=== PATIENT | female | born 1950 | race Caucasian/White ===

== ENCOUNTER 2016-11-01 12:44 | Day surgery (SDC) | payer OTHER ==
[~2016-11-01] VITALS: Ht 167.6 cm; Wt 86.6 kg
[~2016-11-01 12:44] MED LIST: ABILIFY10 MG PO; ADULT LOW DOSE81 M1 PO; ADVAIR 250/501 DISK IH; AKWA TEARS15 ML BOTH EYES; ALBUTEROL SULF8.5 GM IH; ALPRAZOLAM0.5 MG PO; ALTOPREV40 MG PO; AMBIEN CR12.5 MG PO; AMBIEN10 MG PO; AMITIZA24 MICROGR PO; ANTIVERT25 MG PO; ASPIR 8181 M1 PO; ASPIR-TRIN325 M1 PO; ATORVASTATIN CA40 MG PO; AVENTYL,PAMELOR50 MG PO; Ambien PO; B12 5,000 MCG1 EACH PO; BUPROPION XL150 MG PO; BUPROPION XL300 MG PO; BUTALB-ACETAMI1 EACH PO; BUTALB-APAP-CA1 EACH PO; BUTALB-CAFF-AC1 EACH; BUTALBITAL-APA1 EACH PO; CARAFATE1 GM PO; CELEBREX200 MG PO; CIMETIDINE400 MG PO; CINNAMON500 MG PO; CIPRO500 MG PO; CLEOCIN300 MG PO; CLINDAMYCIN HC300 MG PO; CYCLOBENZAPRINE10 MG PO; D-VERT25 MG PO; DICYCLOMINE HCL20 MG PO; DILAUDID4 MG PO; DOMPERIDONE1 GM MC; DOXYCYCLINE HY100 MG PO; DURAGESIC12 MCG TD; DURAGESIC12 MICROGR TD; DURAGESIC25 MCG TD; ENDOCET 5-3251 EACH PO; ENDOCET 7.5-321 EACH PO; ERGOCALCIF50000 UNIT PO; ESGIC 50-325-41 EAC1 PO; FENTANYL1 EAC5 TD; FIORICET 50-301 EACH PO; FLEXERIL10 MG PO; FLONASE16 G1 BOTH NARES; FLUTICASONE PRO16 GM BOTH NARES; GEMFIBROZIL600 MG PO; GLIPIZIDE5 M1 PO; GLIPIZIDE5 MG PO; GLUCOPHAGE1000 MG PO; HUMALOG100 UNIT/1 SC; HUMALOG100 UNIT/2 SC; HYDROXYZINE HCL25 M1 PO; JANUVIA25 M1 PO; KEFLEX500 MG PO; LANTUS 10100 UNITS/ SC; LANTUS 3 M100 UNITS1 SC; LEVAQUIN750 MG PO; LEVOTHROID,SY0.05 MG PO; LEVOTHYROXINE50 MCG PO; LEXAPRO20 MG PO; LIDOCAINE700 MG TD; LIDODERM 5% P1 PATCH TD; LINZESS290 MCG PO; LIPITOR40 MG PO; LISINOPRIL5 MG PO; LOPID600 MG PO; LOPRESSOR25 MG PO; LORAZEPAM0.5 MG PO; LOVASTATIN20 MG PO; LYRICA100 MG PO; LYRICA150 MG PO; LYRICA75 MG PO; MAXALT5 MG PO; MECLIZINE HCL25 MG PO; MELOXICAM7.5 MG PO; METFORMIN HCL1000 MG PO; METHOCARBAMOL750 MG PO; METOPROLOL TART25 MG PO; METOPROLOL TART50 MG PO; MORPHINE SULFAT15 M1 PO; MS CONTIN,ORAMO15 M1 PO; Motilium PO; NITROFURANTOIN100 MG PO; NITROSTAT0.4 MG SL; OMEPRAZOLE40 M1 PO; ONDANSETRON HCL4 MG PO; OXYCODONE HCL5 MG PO; OXYCODONE-APAP1 EAC6 PO; OXYCODONE-APAP1 EACH PO; PAMELOR50 MG PO; PERCOCET 5/31 TABLET PO; PERCOCET 7.51 TABLET PO; PHENADOZ25 MG PO; PRENATAL TABLE1 EAC3 PO; PREVACID15 MG PO; PREVACID30 MG PO; PRILOSEC20 MG PO; PRILOSEC40 MG PO; PRINIVIL5 MG PO; PROAIR RESPICL90 MCG IH; PROMETHAZINE HC25 M1 PO; PROMETHAZINE HC50 M1 PO; Percocet 5/325,Endoc PO; Phenergan PO; RANITIDINE HCL150 M1 PO; REFRESH TEARS15 ML BOTH EYES; REPAN 50-325-41 EAC1 PO; REQUIP0.25 MG PO; RESTORIL15 MG PO; RIZATRIPTAN5 MG PO; ROPINIROLE HC0.25 MG PO; SENOKOT,SENN1 TABLET PO; SERTRALINE HCL50 MG PO; SUMATRIPTAN SUC50 MG PO; SYNTHROID50 MCG PO; TESSALON PERLE100 MG PO; TIZANIDINE HCL2 MG PO; TIZANIDINE HCL4 MG PO; TOPAMAX25 MG PO; TOPAMAX50 MG PO; TOPIRAMATE50 MG PO; TRAZODONE HCL50 MG PO; Theragran PO; VENTOLIN HFA18 GM IH; VICODIN 5-3001 EACH PO; VITAMIN D-32000 UNI1 PO; VITAMIN D22000 UNIT PO; VITAMIN D31000 UNI2 PO; VOLTAREN 1% GE100 GM TP; WELLBUTRIN XL300 MG PO; XANAX0.5 MG PO; ZANAFLEX2 MG PO; ZANAFLEX4 MG PO; ZOFRAN ODT4 MG PO; ZOFRAN4 MG PO; ZOLOFT100 MG PO; ZOLOFT50 MG PO; ZOLPIDEM TART12.5 MG PO; ZOLPIDEM TARTRA10 MG PO; ZYRTEC10 M3 PO
[2016-11-01 13:21] LABS: POINT-OF-CARE METER ID UU14174212
== END 2016-11-01 14:37 | disposition home or self-care (01) ==
LOC: PAIN 12:44 → SDC 13:45 → PAIN 14:37
PROVIDERS: Anesthesiology Pain Medicine
PROC: 015B3ZZ Destruction of Lumbar Nerve, Percutaneous Approach (ICD-10-PCS; principal; 2016-11-01)
DX: M47.816 Spondylosis without myelopathy or radiculopathy, lumbar region (principal); F41.9 Anxiety disorder, unspecified; M12.88 Other specific arthropathies, not elsewhere classified, other specified site; M48.06 Spinal stenosis, lumbar region; M51.26 Other intervertebral disc displacement, lumbar region; M79.1 Myalgia; H91.90 Unspecified hearing loss, unspecified ear; E11.9 Type 2 diabetes mellitus without complications; E66.9 Obesity, unspecified; I10 Essential (primary) hypertension; J45.909 Unspecified asthma, uncomplicated; F32.9 Major depressive disorder, single episode, unspecified; Z87.891 Personal history of nicotine dependence; Z79.4 Long term (current) use of insulin; Z88.0 Allergy status to penicillin; Z88.5 Allergy status to narcotic agent; Z88.1 Allergy status to other antibiotic agents; Z88.8 Allergy status to other drugs, medicaments and biological substances
CPT/HCPCS: 82948; J1030; J2250; J3010; S0020

== ENCOUNTER 2016-12-15 13:32 | Day surgery (SDC) | payer OTHER ==
[~2016-12-15] VITALS: Ht 167.6 cm; Wt 86.6 kg
[2016-12-15 15:07] LABS: POINT-OF-CARE METER ID UU14174212
== END 2016-12-15 15:41 | disposition home or self-care (01) ==
LOC: PAIN 13:32 → SDC 14:15 → PAIN 14:15
PROVIDERS: Anesthesiology Pain Medicine
PROC: 3E0U33Z Introduction of Anti-inflammatory into Joints, Percutaneous Approach (ICD-10-PCS; principal; 2016-12-15)
DX: M16.11 Unilateral primary osteoarthritis, right hip (principal); F41.1 Generalized anxiety disorder; M48.06 Spinal stenosis, lumbar region; E11.9 Type 2 diabetes mellitus without complications; K21.9 Gastro-esophageal reflux disease without esophagitis; I10 Essential (primary) hypertension; E03.9 Hypothyroidism, unspecified; M79.1 Myalgia
CPT/HCPCS: 82948; J1030; S0020

== ENCOUNTER 2017-03-17 23:25 | Emergency (ER) | payer OTHER ==
[~2017-03-17] VITALS: Ht 170.2 cm; Wt 87.2 kg
[2017-03-18 00:02] LABS: HEMATOCRIT 36.9 % (36.0-46.0); MCH 29.9 PG (29.0-34.0); MCHC 33.1 G/DL (30.0-36.0); MCV 90.4 FL (83-99); MEAN PLAT.VOLUME 10.2 uM^3 (9.5-12.4); PLATELET COUNT 156 K/uL (156-360); RBC DIS.WIDTH-CV 12.5 % (11.8-14.6); RBC DIS.WIDTH-SD 41.1 % (39-53); RED BLOOD COUNT 4.08 M/uL (3.80-5.20); WHITE BLOOD COUNT 8.8 K/uL (4.1-10.2)
[2017-03-18 00:10] LABS: CHLORIDE 110 mEq/L (99-109); POTASSIUM 3.9 mEq/L (3.7-5.4); SODIUM 142 mEq/L (136-147)
[2017-03-18 00:13] LABS: GLUCOSE 179 mg/dL (70-99)
[2017-03-18 00:14] LABS: ANION GAP 11 MEQ/L (2-14)
[2017-03-18 00:15] LABS: TOTAL BILIRUBIN 0.3 mg/dL (0.0-1.0)
[2017-03-18 00:16] LABS: ALKALINE PHOSPHATASE 57 IU/L (3-129); GFR ESTIMATE (CALCULATED) 43 mL/min/
[2017-03-18 00:17] LABS: UREA NITROGEN (BUN) 18 mg/dL (9-23)
[2017-03-18 00:20] LABS: LIPASE 19 U/L (1.0-51.0)
[2017-03-18 02:24] LABS: ADD MIUA? NO; BILIRUBIN NEGATIVE; BLOOD NEGATIVE; COLOR YELLOW ((YELLOW)); GLUCOSE (STRIP) NEGATIVE; KETONES NEGATIVE; LEUKOCYTES NEGATIVE; NITRITE NEGATIVE; PROTEIN (STRIP) NEGATIVE; SPECIFIC GRAVITY 1.021 (1.000-1.030); UCUL ADDED? NO; UROBILINOGEN 0.2 MG/DL (0.2-1.0)
[2017-03-18] MEDS ORDERED: ZOFRAN ODT4 MG PO (02:55)
[2017-03-18] MEDS ORDERED: BENTYL20 MG PO (02:55)
[2017-03-18 03:00] VITALS: BP 124/66
== END 2017-03-18 03:00 | disposition home or self-care (01) ==
LOC: EME 23:25
DX: R10.84 Generalized abdominal pain (principal); E11.9 Type 2 diabetes mellitus without complications; R11.0 Nausea; Z90.710 Acquired absence of both cervix and uterus; Z90.49 Acquired absence of other specified parts of digestive tract; I10 Essential (primary) hypertension; E78.5 Hyperlipidemia, unspecified; J45.909 Unspecified asthma, uncomplicated; Z79.4 Long term (current) use of insulin; Z87.891 Personal history of nicotine dependence
CPT/HCPCS: 74000; 80053; 81003; 83690; 85027; 99281; 99284; J1885; J2405; J7030

== ENCOUNTER 2017-04-25 00:58 | Emergency (ER) | payer OTHER ==
[~2017-04-25] VITALS: Ht 167.6 cm; Wt 82.1 kg
[~2017-04-25 00:58] MED LIST changes: +BENTYL20 MG PO
[2017-04-25] MEDS ORDERED: TOBREX5 ML RIGHT EYE (03:48)
[2017-04-25] MEDS ORDERED: ERYTHROMYCIN O3.5 GM RIGHT EAR (03:48)
[2017-04-25 04:18] VITALS: BP 128/78
== END 2017-04-25 04:20 | disposition home or self-care (01) ==
LOC: EME 00:58
DX: T15.01XA Foreign body in cornea, right eye, initial encounter (principal); X58.XXXA Exposure to other specified factors, initial encounter; E11.9 Type 2 diabetes mellitus without complications; Z79.4 Long term (current) use of insulin; J45.909 Unspecified asthma, uncomplicated; Z87.891 Personal history of nicotine dependence
CPT/HCPCS: 99281; 99283

== ENCOUNTER 2017-06-29 13:52 | Inpatient (IN) | payer OTHER ==
[~2017-06-29] VITALS: Ht 170.2 cm; Wt 80.1 kg
[~2017-06-29 13:52] MED LIST changes: +ERYTHROMYCIN O3.5 GM RIGHT EAR; +HYDROCODON-ACE1 EAC8 PO; +MAXALT10 MG PO; -MAXALT5 MG PO; +TOBREX5 ML RIGHT EYE; -VICODIN 5-3001 EACH PO; -ZANAFLEX2 MG PO
[2017-06-29 14:34] LABS: HEMATOCRIT 38.3 % (36.0-46.0); MCH 29.9 PG (29.0-34.0); MCHC 34.2 G/DL (30.0-36.0); MCV 87.4 FL (83-99); MEAN PLAT.VOLUME 10.5 uM^3 (9.5-12.4); PLATELET COUNT 157 K/uL (156-360); RBC DIS.WIDTH-CV 12.8 % (11.8-14.6); RBC DIS.WIDTH-SD 40.9 % (39-53); RED BLOOD COUNT 4.38 M/uL (3.80-5.20); WHITE BLOOD COUNT 10.9 K/uL (4.1-10.2)
[2017-06-29 14:42] LABS: CHLORIDE 108 mEq/L (99-109); POTASSIUM 3.3 mEq/L (3.7-5.4); SODIUM 144 mEq/L (136-147)
[2017-06-29 14:44] LABS: GLUCOSE 149 mg/dL (70-99)
[2017-06-29 14:45] LABS: ANION GAP 11 MEQ/L (2-14)
[2017-06-29 14:48] LABS: GFR ESTIMATE (CALCULATED) > 59 mL/min/; UREA NITROGEN (BUN) 12 mg/dL (9-23)
[2017-06-29 14:55] LABS: TROP-I INTERPRETATION NEGATIVE; TROPONIN-I < 0.01 ng/mL (0.0-0.30)
[2017-06-29] MEDS ORDERED: MUCINEX1200 MG PO (16:53)
[2017-06-29] MEDS ORDERED: AFRIN,GENASAL D15 ML BOTH NARES (16:53)
[2017-06-29 18:15] VITALS: BP 134/71
[2017-06-29 18:44] VITALS: BP 112/59
[2017-06-29 20:00] VITALS: BP 135/68
[2017-06-29 20:31] LABS: TROP-I INTERPRETATION NEGATIVE; TROPONIN-I < 0.01 ng/mL (0.0-0.30)
[2017-06-29 22:46] LABS: POINT-OF-CARE METER ID UU14162513
[2017-06-30] VITALS: BP 114/63
[2017-06-30 03:36] LABS: TROP-I INTERPRETATION NEGATIVE; TROPONIN-I < 0.01 ng/mL (0.0-0.30)
[2017-06-30 04:00] VITALS: BP 97/52
[2017-06-30 07:36] VITALS: BP 104/55
[2017-06-30 09:04] LABS: HEMATOCRIT 35.5 % (36.0-46.0); MCH 30.6 PG (29.0-34.0); MCHC 34.1 G/DL (30.0-36.0); MCV 89.9 FL (83-99); MEAN PLAT.VOLUME 10.6 uM^3 (9.5-12.4); PLATELET COUNT 135 K/uL (156-360); RBC DIS.WIDTH-CV 13.3 % (11.8-14.6); RBC DIS.WIDTH-SD 44.2 % (39-53); RED BLOOD COUNT 3.95 M/uL (3.80-5.20); WHITE BLOOD COUNT 5.5 K/uL (4.1-10.2)
[2017-06-30 09:27] LABS: ANION GAP 8 MEQ/L (2-14); CHLORIDE 108 MEQ/L (99-109); GFR ESTIMATE (CALCULATED) 53 mL/min/; SAMPLE HEMOLYSIS CHECK 0; SAMPLE ICTERIC CHECK 0; SAMPLE LIPEMIA CHECK 0; SODIUM 141 MEQ/L (136-147); UREA NITROGEN (BUN) 16 mg/dL (9-23)
[2017-06-30 09:39] LABS: GLUCOSE 72 mg/dL (70-99); POTASSIUM 4.3 MEQ/L (3.7-5.4)
[2017-06-30 10:09] LABS: POINT-OF-CARE METER ID UU13113700
[2017-06-30 11:29] VITALS: BP 85/53
[2017-06-30 12:26] LABS: POINT-OF-CARE METER ID UU13113700
[2017-06-30 13:52] LABS: POINT-OF-CARE METER ID UU13113700
[2017-06-30 14:08] LABS: POINT-OF-CARE METER ID UU14162513
[2017-06-30 14:51] LABS: POINT-OF-CARE METER ID UU14162513
[2017-06-30 15:49] LABS: POINT-OF-CARE METER ID UU14162513
[2017-06-30 16:18] LABS: POINT-OF-CARE METER ID UU14162513
[2017-06-30 17:01] LABS: POINT-OF-CARE METER ID UU13113831
[2017-06-30 22:00] VITALS: BP 100/56
[2017-06-30 22:01] LABS: POINT-OF-CARE METER ID UU13113700
[2017-07-01 00:22] VITALS: BP 111/55
[2017-07-01 04:55] VITALS: BP 106/56
[2017-07-01 08:13] LABS: HEMATOCRIT 34.1 % (36.0-46.0); MCH 30.6 PG (29.0-34.0); MCHC 33.7 G/DL (30.0-36.0); MCV 90.7 FL (83-99); MEAN PLAT.VOLUME 10.7 uM^3 (9.5-12.4); PLATELET COUNT 137 K/uL (156-360); RBC DIS.WIDTH-CV 13.4 % (11.8-14.6); RBC DIS.WIDTH-SD 44.8 % (39-53); RED BLOOD COUNT 3.76 M/uL (3.80-5.20); WHITE BLOOD COUNT 4.9 K/uL (4.1-10.2)
[2017-07-01 08:44] LABS: ANION GAP 5 MEQ/L (2-14); CHLORIDE 106 MEQ/L (99-109); POTASSIUM 4.5 MEQ/L (3.7-5.4); SAMPLE HEMOLYSIS CHECK 0; SAMPLE ICTERIC CHECK 0; SAMPLE LIPEMIA CHECK 0; SODIUM 140 MEQ/L (136-147)
[2017-07-01 08:50] LABS: GFR ESTIMATE (CALCULATED) 48 mL/min/; UREA NITROGEN (BUN) 16 mg/dL (9-23)
[2017-07-01 08:51] LABS: GLUCOSE 114 mg/dL (70-99)
[2017-07-01 08:54] LABS: POINT-OF-CARE METER ID UU14162513
[2017-07-01 12:13] LABS: C-REACTIVE PROTEIN 8.9 MG/L (0-10)
[2017-07-01 12:25] LABS: TROP-I INTERPRETATION NEGATIVE; TROPONIN-I < 0.01 ng/mL (0.0-0.30)
[2017-07-01 12:29] VITALS: BP 103/51
[2017-07-01 12:59] LABS: ERTH.SED.RATE 3 MM/HR (0-30)
[2017-07-01 13:05] LABS: POINT-OF-CARE METER ID UU13113700
[2017-07-01] MEDS ORDERED: LANTUS 10100 UNITS/ SC (13:17)
[2017-07-01 15:28] LABS: POINT-OF-CARE METER ID UU13113831
[2017-07-01 16:00] VITALS: BP 100/58
[2017-07-01 18:27] LABS: POINT-OF-CARE METER ID UU13113700
== END 2017-07-01 18:47 | disposition home or self-care (01) | DRG 313 ==
LOC: EME 13:52 → 5WEST 16:05 → EDOF 16:05 → ENRESERV 16:09 → 5WEST 17:57
PROVIDERS: Emergency Medicine; Internal Medicine; Nurse Practitioner Adult Health
DX: R07.9 Chest pain, unspecified (principal); E11.649 Type 2 diabetes mellitus with hypoglycemia without coma; E87.6 Hypokalemia; I10 Essential (primary) hypertension; F32.9 Major depressive disorder, single episode, unspecified; F29 Unspecified psychosis not due to a substance or known physiological condition; F41.9 Anxiety disorder, unspecified; Z79.4 Long term (current) use of insulin; I25.2 Old myocardial infarction; Z86.718 Personal history of other venous thrombosis and embolism; M79.7 Fibromyalgia; K21.9 Gastro-esophageal reflux disease without esophagitis; E03.9 Hypothyroidism, unspecified; F17.200 Nicotine dependence, unspecified, uncomplicated; F41.0 Panic disorder [episodic paroxysmal anxiety]; G89.29 Other chronic pain; E78.5 Hyperlipidemia, unspecified; I25.10 Atherosclerotic heart disease of native coronary artery without angina pectoris; G43.909 Migraine, unspecified, not intractable, without status migrainosus; J45.909 Unspecified asthma, uncomplicated; Z79.899 Other long term (current) drug therapy
CPT/HCPCS: 71010; 80048; 80053; 82948; 83036; 84439; 84443; 84484; 85027; 85651; 86140; 93005; 99281; 99285; G0378; J1200; J1650; J1885; J2060; J2270; J2765

== ENCOUNTER 2017-07-27 18:24 | Inpatient (IN) | payer OTHER ==
[~2017-07-27] VITALS: Ht 170.2 cm; Wt 81.7 kg
[~2017-07-27 18:24] MED LIST changes: +AFRIN,GENASAL D15 ML BOTH NARES; +MUCINEX1200 MG PO
[2017-07-27 19:22] LABS: HEMATOCRIT 33.7 % (36.0-46.0); MCHC 33.8 G/DL (30.0-36.0); MCV 88.7 FL (83-99); MEAN PLAT.VOLUME 10.5 uM^3 (9.5-12.4); PLATELET COUNT 141 K/uL (156-360); RBC DIS.WIDTH-SD 42.5 % (39-53); WHITE BLOOD COUNT 13.5 K/uL (4.1-10.2)
[2017-07-27 19:30] LABS: CHLORIDE 111 mEq/L (99-109); POTASSIUM 3.9 mEq/L (3.7-5.4); SODIUM 140 mEq/L (136-147)
[2017-07-27 19:32] LABS: GLUCOSE 112 mg/dL (70-99)
[2017-07-27 19:33] LABS: ANION GAP 6 MEQ/L (2-14); PROTHROMBIN TIME 11.4 SEC (10.2-12.9)
[2017-07-27 19:35] LABS: PTT 28.7 SEC (25-37)
[2017-07-27 19:36] LABS: GFR ESTIMATE (CALCULATED) 48 mL/min/
[2017-07-27 19:37] LABS: UREA NITROGEN (BUN) 13 mg/dL (9-23)
[2017-07-27 19:43] LABS: TROP-I INTERPRETATION NEGATIVE; TROPONIN-I < 0.01 ng/mL (0.0-0.30)
[2017-07-27 20:29] LABS: ADD MIUA? YES; BILIRUBIN NEGATIVE; BLOOD NEGATIVE; COLOR YELLOW ((YELLOW)); GLUCOSE (STRIP) NEGATIVE; KETONES NEGATIVE; LEUKOCYTES TRACE; NITRITE NEGATIVE; PROTEIN (STRIP) NEGATIVE; SPECIFIC GRAVITY 1.012 (1.000-1.030); UROBILINOGEN 0.2 MG/DL (0.2-1.0)
[2017-07-27 20:31] LABS: BACTERIA RARE /HPF; EPITHELIAL CELLS RARE /HPF; MUCUS NONE SEEN /LPF; RED BLOOD CELLS 0-5 /HPF (0-5); WHITE BLOOD CELLS 0-5 /HPF (0-5)
[2017-07-27] MEDS ORDERED: LANTUS 10100 UNITS/ SC (21:33)
[2017-07-28] VITALS (7 sets, daily range): BP systolic 94–124; BP diastolic 48–60
[2017-07-28 06:18] LABS: TROP-I INTERPRETATION NEGATIVE; TROPONIN-I < 0.01 ng/mL (0.0-0.30)
[2017-07-28 07:07] LABS: Estimated Average Glucose 148 mg/dL (70-123); HEMOGLOBIN A1c (GLYCOHEMOGLOB) 6.8 % HGB (Below 5.7)
[2017-07-28 08:51] LABS: POINT-OF-CARE METER ID UU13113700
[2017-07-28 11:43] LABS: POINT-OF-CARE METER ID UU13113700
[2017-07-28 12:15] LABS: EOSINOPHIL (%) 1.2 % (0-5); EOSINOPHIL COUNT 0.1 K/uL (0-0.3); HEMATOCRIT 32.2 % (36.0-46.0); IMMATURE GRANULOCYTE (%) 0.3 % (0.0-0.7); LYMPHOCYTE COUNT 1.5 K/uL (1.0-2.8); MCH 30.1 PG (29.0-34.0); MCHC 33.2 G/DL (30.0-36.0); MCV 90.4 FL (83-99); MEAN PLAT.VOLUME 10.8 uM^3 (9.5-12.4); MONOCYTE (%) 3.5 % (3-12); MONOCYTE COUNT 0.3 K/uL (0-0.8); NEUTROPHIL (%) 77.8 % (45-76); PLATELET COUNT 120 K/uL (156-360); RBC DIS.WIDTH-CV 13.3 % (11.8-14.6); RBC DIS.WIDTH-SD 44.1 % (39-53); RED BLOOD COUNT 3.56 M/uL (3.80-5.20)
[2017-07-28 12:41] LABS: TROP-I INTERPRETATION NEGATIVE; TROPONIN-I < 0.01 ng/mL (0.0-0.30)
[2017-07-28 12:53] LABS: ANION GAP 6 MEQ/L (2-14); CHLORIDE 114 MEQ/L (99-109); GFR ESTIMATE (CALCULATED) > 59 mL/min/; GLUCOSE 123 mg/dL (70-99); POTASSIUM 4.2 MEQ/L (3.7-5.4); SAMPLE HEMOLYSIS CHECK 0; SAMPLE ICTERIC CHECK 0; SAMPLE LIPEMIA CHECK 0; SODIUM 145 MEQ/L (136-147); UREA NITROGEN (BUN) 12 mg/dL (9-23)
[2017-07-28 15:45] LABS: AMPHETAMINES QUANT VALUE 0 NG/ML; BENZODIAZEPINES QUANT VALUE 0 NG/ML; BENZODIAZEPINES, URINE SCREEN Negative (200 ng/mL); MARIJUANA QUANT VALUE 0 NG/ML; PHENCYCLIDINE QUANT VALUE 0 NG/ML
[2017-07-28 16:48] LABS: POINT-OF-CARE METER ID UU13113700
[2017-07-29 03:55] VITALS: BP 114/57
[2017-07-29 05:40] LABS: MCH 29.5 PG (29.0-34.0); MCHC 32.7 G/DL (30.0-36.0); MCV 90.2 FL (83-99); MEAN PLAT.VOLUME 11.2 uM^3 (9.5-12.4); PLATELET COUNT 124 K/uL (156-360); RBC DIS.WIDTH-CV 13.2 % (11.8-14.6); RBC DIS.WIDTH-SD 43.8 % (39-53); RED BLOOD COUNT 3.66 M/uL (3.80-5.20); WHITE BLOOD COUNT 5.1 K/uL (4.1-10.2)
[2017-07-29 06:07] LABS: ANION GAP 7 MEQ/L (2-14); CHLORIDE 114 MEQ/L (99-109); GFR ESTIMATE (CALCULATED) > 59 mL/min/; GLUCOSE 97 mg/dL (70-99); POTASSIUM 4.1 MEQ/L (3.7-5.4); SAMPLE HEMOLYSIS CHECK 0; SAMPLE ICTERIC CHECK 0; SAMPLE LIPEMIA CHECK 0; SODIUM 144 MEQ/L (136-147); UREA NITROGEN (BUN) 14 mg/dL (9-23)
[2017-07-29 08:04] LABS: POINT-OF-CARE METER ID UU13113700
[2017-07-29 09:45] VITALS: BP 118/59
[2017-07-29 11:28] VITALS: BP 102/52
[2017-07-29 11:49] LABS: POINT-OF-CARE METER ID UU13113700
[2017-07-29 16:51] VITALS: BP 107/55
[2017-07-29 19:10] VITALS: BP 111/56
[2017-07-29 21:53] LABS: POINT-OF-CARE METER ID UU13113831
[2017-07-30 00:15] VITALS: BP 119/58
[2017-07-30 04:08] VITALS: BP 117/54
[2017-07-30 05:51] LABS: MCH 29.7 PG (29.0-34.0); MCV 89.9 FL (83-99); MEAN PLAT.VOLUME 11.3 uM^3 (9.5-12.4); PLATELET COUNT 134 K/uL (156-360); RBC DIS.WIDTH-CV 13.2 % (11.8-14.6); RBC DIS.WIDTH-SD 43.3 % (39-53); RED BLOOD COUNT 3.67 M/uL (3.80-5.20); WHITE BLOOD COUNT 4.3 K/uL (4.1-10.2)
[2017-07-30 06:18] LABS: ANION GAP 9 MEQ/L (2-14); CHLORIDE 111 MEQ/L (99-109); GFR ESTIMATE (CALCULATED) 59 mL/min/; GLUCOSE 109 mg/dL (70-99); MAGNESIUM 1.8 mg/dl (1.3-2.7); POTASSIUM 4.2 MEQ/L (3.7-5.4); SAMPLE HEMOLYSIS CHECK 0; SAMPLE ICTERIC CHECK 0; SAMPLE LIPEMIA CHECK 0; SODIUM 144 MEQ/L (136-147); UREA NITROGEN (BUN) 16 mg/dL (9-23)
[2017-07-30 08:30] LABS: POINT-OF-CARE METER ID UU13113700
[2017-07-30 09:00] VITALS: BP 108/55
[2017-07-30 11:44] VITALS: BP 106/59
[2017-07-30 11:45] LABS: POINT-OF-CARE METER ID UU13113831
[2017-07-30 15:28] VITALS: BP 115/53
[2017-07-30 18:24] LABS: POINT-OF-CARE METER ID UU14162513
[2017-07-30 20:05] VITALS: BP 116/60
[2017-07-30 20:45] LABS: POINT-OF-CARE METER ID UU13113831
[2017-07-31] VITALS (7 sets, daily range): BP systolic 104–134; BP diastolic 54–62
[2017-07-31 08:53] LABS: POINT-OF-CARE METER ID UU14162513
[2017-07-31 12:53] LABS: POINT-OF-CARE METER ID UU14162513
[2017-07-31] MEDS ORDERED: HEPARIN SO5000 UNIT4 SC (15:28)
[2017-07-31] MEDS ORDERED: NOVOLOG 10100 UNITS/ SC (15:28)
[2017-07-31 17:48] LABS: POINT-OF-CARE METER ID UU13113700
[2017-07-31 21:00] LABS: POINT-OF-CARE METER ID UU14162513
[2017-08-01 03:39] VITALS: BP 106/53
[2017-08-01 07:44] VITALS: BP 103/57
[2017-08-01 07:57] LABS: POINT-OF-CARE METER ID UU13113700
[2017-08-01 12:07] LABS: POINT-OF-CARE METER ID UU13113700
[2017-08-01] MEDS ORDERED: PROTONIX40 MG PO (14:33)
[2017-08-01] MEDS ORDERED: LOPRESSOR25 MG PO (14:34)
[2017-08-01] MEDS ORDERED: LEVEMIR100 UNIT/2 SC (14:36)
[2017-08-01] MEDS ORDERED: ZOFRAN4 MG PO (14:38)
[2017-08-01] MEDS ORDERED: VENTOLIN HFA18 GM IH (14:40)
[2017-08-01] MEDS ORDERED: ACID CONTROLLER20 MG PO (14:44)
== END 2017-08-01 12:21 | DRG 312 ==
LOC: EME 18:24 → EDOF 22:51 → 5WEST 22:51 → EDOF 22:51 → ENRESERV 22:52 → 5WEST 07-28 00:34
PROVIDERS: Emergency Medicine; Hospitalist; Internal Medicine; Internal Medicine Infectious Disease
DX: R55 Syncope and collapse (principal); K31.84 Gastroparesis; E11.43 Type 2 diabetes mellitus with diabetic autonomic (poly)neuropathy; R50.9 Fever, unspecified; G89.29 Other chronic pain; E78.5 Hyperlipidemia, unspecified; I10 Essential (primary) hypertension; I25.10 Atherosclerotic heart disease of native coronary artery without angina pectoris; W19.XXXA Unspecified fall, initial encounter; K21.9 Gastro-esophageal reflux disease without esophagitis; M79.7 Fibromyalgia; F41.0 Panic disorder [episodic paroxysmal anxiety]; J45.909 Unspecified asthma, uncomplicated; E03.9 Hypothyroidism, unspecified; G43.909 Migraine, unspecified, not intractable, without status migrainosus; F17.200 Nicotine dependence, unspecified, uncomplicated; F41.9 Anxiety disorder, unspecified; F32.9 Major depressive disorder, single episode, unspecified; M25.552 Pain in left hip; Z79.899 Other long term (current) drug therapy; I25.2 Old myocardial infarction; Z90.49 Acquired absence of other specified parts of digestive tract; Z79.4 Long term (current) use of insulin; Z87.11 Personal history of peptic ulcer disease
CPT/HCPCS: 70450; 71020; 73502; 80048; 80306 90; 81003; 82306; 82550; 82607; 82948; 83036; 83605; 83735; 83880; 84443; 84484; 85025; 85027; 85610; 85730; 86611 90; 87040; 87086; 90686; 93005; 93306; 99202; 99281; 99285; G0378; G8978 GP CI; G8979 GP CH; J0696; J1644; J1815; J2405; J7030; J7050

== ENCOUNTER 2017-08-01 08:44 | Inpatient (IN) | payer OTHER ==
[~2017-08-01] VITALS: Ht 167.6 cm; Wt 77.4 kg
[~2017-08-01 08:44] MED LIST changes: +HEPARIN SO5000 UNIT4 SC; +NOVOLOG 10100 UNITS/ SC
[2017-08-01 12:20] VITALS: BP 118/56
[2017-08-01] MEDS ORDERED: PROTONIX40 MG PO (14:33)
[2017-08-01] MEDS ORDERED: LOPRESSOR25 MG PO (14:34)
[2017-08-01] MEDS ORDERED: LEVEMIR100 UNIT/2 SC (14:36)
[2017-08-01] MEDS ORDERED: ZOFRAN4 MG PO (14:38)
[2017-08-01] MEDS ORDERED: VENTOLIN HFA18 GM IH (14:40)
[2017-08-01] MEDS ORDERED: ACID CONTROLLER20 MG PO (14:44)
[2017-08-01 15:54] VITALS: BP 130/60
[2017-08-01 21:21] LABS: POINT-OF-CARE METER ID UU14174215
[2017-08-01 23:22] VITALS: BP 94/50
[2017-08-02 05:33] LABS: ANION GAP 9 MEQ/L (2-14); CHLORIDE 107 MEQ/L (99-109); SAMPLE HEMOLYSIS CHECK 0; SAMPLE ICTERIC CHECK 0; SAMPLE LIPEMIA CHECK 0; SODIUM 139 MEQ/L (136-147); TOTAL BILIRUBIN 0.4 MG/DL (0.0-1.0)
[2017-08-02 05:34] VITALS: BP 111/53
[2017-08-02 05:45] LABS: ALKALINE PHOSPHATASE 58 IU/L (3-129); GFR ESTIMATE (CALCULATED) > 59 mL/min/; GLUCOSE 94 mg/dL (70-99); UREA NITROGEN (BUN) 19 mg/dL (9-23)
[2017-08-02 05:48] LABS: HEMATOCRIT 35.3 % (36.0-46.0); MCH 30.4 PG (29.0-34.0); MCHC 33.7 G/DL (30.0-36.0); MCV 90.3 FL (83-99); PLATELET COUNT 166 K/uL (156-360); RBC DIS.WIDTH-CV 13.2 % (11.8-14.6); RBC DIS.WIDTH-SD 43.9 % (39-53); RED BLOOD COUNT 3.91 M/uL (3.80-5.20); WHITE BLOOD COUNT 4.2 K/uL (4.1-10.2)
[2017-08-02 07:25] LABS: POINT-OF-CARE METER ID UU14174215; POINT-OF-CARE USER ID AHSSSJB31
[2017-08-02 09:53] LABS: POINT-OF-CARE METER ID UU14174215
[2017-08-02 11:59] LABS: POINT-OF-CARE METER ID UU13113720; POINT-OF-CARE USER ID AHSSSJB31
[2017-08-02 15:15] VITALS: BP 116/59
[2017-08-02 16:55] LABS: POINT-OF-CARE METER ID UU13113720
[2017-08-02 21:01] LABS: POINT-OF-CARE METER ID UU13113720
[2017-08-03 01:00] LABS: POINT-OF-CARE METER ID UU14174215
[2017-08-03 05:24] VITALS: BP 111/58
[2017-08-03 06:05] LABS: POINT-OF-CARE METER ID UU13113720
[2017-08-03 06:46] LABS: POINT-OF-CARE METER ID UU14174215
[2017-08-03 08:23] LABS: POINT-OF-CARE METER ID UU13113720
[2017-08-03 11:48] LABS: POINT-OF-CARE METER ID UU13113720
[2017-08-03 15:11] VITALS: BP 117/59
[2017-08-03 16:25] LABS: POINT-OF-CARE METER ID UU14174215
[2017-08-03 21:09] LABS: POINT-OF-CARE METER ID UU14174215
[2017-08-04 05:08] LABS: POINT-OF-CARE METER ID UU14174215
[2017-08-04 05:17] VITALS: BP 122/68
[2017-08-04 07:38] LABS: POINT-OF-CARE METER ID UU13113720; POINT-OF-CARE USER ID AHSSSJB31
[2017-08-04 11:29] LABS: POINT-OF-CARE METER ID UU14174215; POINT-OF-CARE USER ID AHSSSJB31
[2017-08-04 16:27] LABS: POINT-OF-CARE METER ID UU13113720
[2017-08-04 16:33] VITALS: BP 97/53
[2017-08-04 17:01] VITALS: BP 110/52
[2017-08-04 20:54] LABS: POINT-OF-CARE METER ID UU13113720
[2017-08-05 05:15] VITALS: BP 107/58
[2017-08-05 07:34] LABS: POINT-OF-CARE METER ID UU13113720; POINT-OF-CARE USER ID AHSSSJB31
[2017-08-05 11:51] LABS: POINT-OF-CARE METER ID UU13113720; POINT-OF-CARE USER ID AHSSSJB31
[2017-08-05 15:35] VITALS: BP 120/60
[2017-08-05 17:08] LABS: POINT-OF-CARE METER ID UU13113720
[2017-08-05 21:11] LABS: POINT-OF-CARE METER ID UU14174215
[2017-08-05] MEDS ORDERED: ZOFRAN4 MG PO (21:45)
[2017-08-06 05:52] VITALS: BP 111/54
[2017-08-06 07:15] LABS: POINT-OF-CARE METER ID UU13113720; POINT-OF-CARE USER ID AHSSSJB31
[2017-08-06 11:53] LABS: POINT-OF-CARE METER ID UU13113720; POINT-OF-CARE USER ID AHSSSJB31
== END 2017-08-06 13:32 | disposition home or self-care (01) | DRG 946 ==
LOC: 3WEST 08:44 → ENPENDDIS 08-07
PROVIDERS: Psychiatry & Neurology Neurology
PROC: F07M0ZZ Range of Motion and Joint Mobility Treatment of Musculoskeletal System - Whole Body (ICD-10-PCS; principal; 2017-08-01)
DX: R53.1 Weakness (principal); R55 Syncope and collapse; E11.9 Type 2 diabetes mellitus without complications; Z91.81 History of falling; G43.909 Migraine, unspecified, not intractable, without status migrainosus; R27.0 Ataxia, unspecified; G89.29 Other chronic pain; I25.10 Atherosclerotic heart disease of native coronary artery without angina pectoris; E78.5 Hyperlipidemia, unspecified; I10 Essential (primary) hypertension; K21.9 Gastro-esophageal reflux disease without esophagitis
CPT/HCPCS: 80053; 82948; 85027; 87086; 97110 GO; 97530 GP; 99202; J1644; J1815

== ENCOUNTER 2017-10-19 14:25 | Emergency (ER) | payer OTHER ==
[~2017-10-19] VITALS: Ht 167.6 cm; Wt 81.6 kg
[~2017-10-19 14:25] MED LIST changes: +ACID CONTROLLER20 MG PO; +LEVEMIR100 UNIT/2 SC; +PROTONIX40 MG PO
[2017-10-19 19:23] VITALS: BP 112/55
== END 2017-10-19 19:25 | disposition home or self-care (01) ==
LOC: EME 14:25
DX: S09.90XA Unspecified injury of head, initial encounter (principal); F11.20 Opioid dependence, uncomplicated; S70.02XA Contusion of left hip, initial encounter; M25.562 Pain in left knee; M54.9 Dorsalgia, unspecified; W01.190A Fall on same level from slipping, tripping and stumbling with subsequent striking against furniture, initial encounter; Y93.89 Activity, other specified; M79.7 Fibromyalgia; K21.9 Gastro-esophageal reflux disease without esophagitis; J45.909 Unspecified asthma, uncomplicated; I10 Essential (primary) hypertension; E78.5 Hyperlipidemia, unspecified; E11.9 Type 2 diabetes mellitus without complications; E03.9 Hypothyroidism, unspecified; G89.29 Other chronic pain; I25.2 Old myocardial infarction; F41.9 Anxiety disorder, unspecified; F32.9 Major depressive disorder, single episode, unspecified; Z79.4 Long term (current) use of insulin; F17.200 Nicotine dependence, unspecified, uncomplicated; Z88.5 Allergy status to narcotic agent; Z88.0 Allergy status to penicillin; Z88.1 Allergy status to other antibiotic agents
CPT/HCPCS: 70450; 71020; 72100; 72125; 73502; 73564; 90832; 99281; 99284

== ENCOUNTER 2017-10-26 07:29 | Emergency (ER) | payer OTHER ==
[~2017-10-26] VITALS: Ht 167.6 cm; Wt 83.6 kg
[2017-10-26 12:21] LABS: APPEARANCE CLEAR ((CLEAR)); BILIRUBIN NEGATIVE; BLOOD NEGATIVE; COLOR YELLOW ((YELLOW)); GLUCOSE (STRIP) NEGATIVE; KETONES NEGATIVE; LEUKOCYTES NEGATIVE; NITRITE NEGATIVE; PROTEIN (STRIP) NEGATIVE; SPECIFIC GRAVITY 1.013 (1.000-1.030); UROBILINOGEN 0.2 MG/DL (0.2-1.0)
[2017-10-26 14:54] LABS: HEMATOCRIT 33.5 % (36.0-46.0); HEMOGLOBIN 11.1 G/DL (11.9-15.5); MCH 29.8 PG (29.0-34.0); MCHC 33.1 G/DL (30.0-36.0); MCV 89.8 FL (83-99); PLATELET COUNT 112 K/uL (156-360); RBC DIS.WIDTH-CV 13.2 % (11.8-14.6); RBC DIS.WIDTH-SD 43.8 % (39-53); RED BLOOD COUNT 3.73 M/uL (3.80-5.20); WHITE BLOOD COUNT 4.3 K/uL (4.1-10.2)
[2017-10-26 15:04] LABS: CHLORIDE 109 mEq/L (99-109); POTASSIUM 3.8 mEq/L (3.7-5.4); SODIUM 141 mEq/L (136-147)
[2017-10-26 15:06] LABS: GLUCOSE 198 mg/dL (70-99)
[2017-10-26 15:10] LABS: CREATININE 1.2 mg/dL (0.6-1.3); GFR ESTIMATE (CALCULATED) 48 mL/min/; UREA NITROGEN (BUN) 16 mg/dL (9-23)
[2017-10-26 18:45] VITALS: BP 129/62
== END 2017-10-26 18:50 | disposition home or self-care (01) ==
LOC: EME 07:29
PROVIDERS: Physician Assistant
DX: R26.2 Difficulty in walking, not elsewhere classified (principal); M54.5 Low back pain; G89.29 Other chronic pain; M51.36 Other intervertebral disc degeneration, lumbar region; I10 Essential (primary) hypertension; E78.5 Hyperlipidemia, unspecified; E11.9 Type 2 diabetes mellitus without complications; E03.9 Hypothyroidism, unspecified; K21.9 Gastro-esophageal reflux disease without esophagitis; J45.909 Unspecified asthma, uncomplicated; M19.90 Unspecified osteoarthritis, unspecified site; M79.7 Fibromyalgia; I25.2 Old myocardial infarction; G43.909 Migraine, unspecified, not intractable, without status migrainosus; F32.9 Major depressive disorder, single episode, unspecified; F41.9 Anxiety disorder, unspecified; F41.0 Panic disorder [episodic paroxysmal anxiety]; Z87.891 Personal history of nicotine dependence; Z79.4 Long term (current) use of insulin; Z90.710 Acquired absence of both cervix and uterus; Z90.49 Acquired absence of other specified parts of digestive tract; Z85.9 Personal history of malignant neoplasm, unspecified; Z88.5 Allergy status to narcotic agent; Z88.0 Allergy status to penicillin; Z88.1 Allergy status to other antibiotic agents; Z88.8 Allergy status to other drugs, medicaments and biological substances
CPT/HCPCS: 72100; 80048; 81003; 85027; G8978 GP CK; G8979 CJ; G8980 GP CK; G8987 CK; G8988 CI; G8989 GO CK; J2270

== ENCOUNTER 2017-10-29 13:19 | Emergency (ER) | payer OTHER ==
[~2017-10-29] VITALS: Ht 170.2 cm; Wt 87.5 kg
[2017-10-29 15:31] LABS: HEMATOCRIT 32.5 % (36.0-46.0); MCH 30.6 PG (29.0-34.0); MCHC 33.8 G/DL (30.0-36.0); MCV 90.3 FL (83-99); PLATELET COUNT 132 K/uL (156-360); RBC DIS.WIDTH-CV 13.1 % (11.8-14.6); RBC DIS.WIDTH-SD 43.7 % (39-53); WHITE BLOOD COUNT 4.3 K/uL (4.1-10.2)
[2017-10-29 15:40] LABS: CHLORIDE 109 mEq/L (99-109); POTASSIUM 4.1 mEq/L (3.7-5.4); SODIUM 141 mEq/L (136-147)
[2017-10-29 15:41] LABS: GLUCOSE 134 mg/dL (70-99)
[2017-10-29 15:45] LABS: CREATININE 0.9 mg/dL (0.6-1.3); GFR ESTIMATE (CALCULATED) > 59 mL/min/
[2017-10-29 15:46] LABS: UREA NITROGEN (BUN) 12 mg/dL (9-23)
[2017-10-29 16:54] LABS: PTT 30.9 SEC (25-37)
[2017-10-29] MEDS ORDERED: XARELTO1 EACH PO (17:03)
[2017-10-29] MEDS ORDERED: BACTRIM,SEPT1 TABLET PO (17:03)
[2017-10-29 18:00] VITALS: BP 126/40
== END 2017-10-29 18:00 | disposition home or self-care (01) ==
LOC: EME 13:19
PROVIDERS: Nurse Practitioner Family
DX: I82.432 Acute embolism and thrombosis of left popliteal vein (principal); L03.317 Cellulitis of buttock; Z98.890 Other specified postprocedural states; E11.9 Type 2 diabetes mellitus without complications; Z79.4 Long term (current) use of insulin; E03.9 Hypothyroidism, unspecified; E78.5 Hyperlipidemia, unspecified; I10 Essential (primary) hypertension; G89.29 Other chronic pain; M79.7 Fibromyalgia; I25.2 Old myocardial infarction; Z87.891 Personal history of nicotine dependence; F32.9 Major depressive disorder, single episode, unspecified; J45.909 Unspecified asthma, uncomplicated; F41.9 Anxiety disorder, unspecified; K21.9 Gastro-esophageal reflux disease without esophagitis; Z88.5 Allergy status to narcotic agent; Z88.0 Allergy status to penicillin
CPT/HCPCS: 73630; 80048; 85027; 85610; 85730; 93971; 99281; 99283

== ENCOUNTER 2017-10-31 20:55 | Observation (INO) | payer OTHER ==
[~2017-10-31] VITALS: Ht 170.2 cm; Wt 81.8 kg
[~2017-10-31 20:55] MED LIST changes: +BACTRIM,SEPT1 TABLET PO; +XARELTO1 EACH PO
[2017-10-31 23:55] LABS: BASOPHIL (%) 0.4 % (0-1); EOSINOPHIL COUNT 0.1 K/uL (0-0.3); HEMATOCRIT 34.1 % (36.0-46.0); HEMOGLOBIN 11.5 G/DL (11.9-15.5); IMMATURE GRANULOCYTE (%) 0.2 % (0.0-0.7); LYMPHOCYTE (%) 36.7 % (15-42); LYMPHOCYTE COUNT 1.7 K/uL (1.0-2.8); MCHC 33.7 G/DL (30.0-36.0); MONOCYTE (%) 6.8 % (3-12); MONOCYTE COUNT 0.3 K/uL (0-0.8); NEUTROPHIL (%) 53.9 % (45-76); NEUTROPHIL COUNT 2.5 K/uL (1.8-6.4); PLATELET COUNT 151 K/uL (156-360); RBC DIS.WIDTH-CV 12.9 % (11.8-14.6); RBC DIS.WIDTH-SD 42.2 % (39-53); RED BLOOD COUNT 3.83 M/uL (3.80-5.20); WHITE BLOOD COUNT 4.6 K/uL (4.1-10.2)
[2017-11-01] LABS: INTER. NORMALIZED RATIO 2.2
[2017-11-01 00:03] LABS: PTT 41.5 SEC (25-37)
[2017-11-01 00:12] LABS: CHLORIDE 112 mEq/L (99-109); POTASSIUM 3.7 mEq/L (3.7-5.4); SODIUM 141 mEq/L (136-147)
[2017-11-01 00:14] LABS: GLUCOSE 130 mg/dL (70-99)
[2017-11-01 00:18] LABS: GFR ESTIMATE (CALCULATED) 59 mL/min/
[2017-11-01 00:19] LABS: UREA NITROGEN (BUN) 12 mg/dL (9-23)
[2017-11-01 00:21] LABS: TROP-I INTERPRETATION NEGATIVE; TROPONIN-I < 0.01 ng/mL (0.0-0.30)
[2017-11-01 09:31] VITALS: BP 141/65
[2017-11-01] MEDS ORDERED: XANAX0.5 MG PO (11:17)
[2017-11-01] MEDS ORDERED: RESTORIL15 MG PO (11:17)
[2017-11-01] MEDS ORDERED: ABILIFY10 MG PO (11:17)
[2017-11-01] MEDS ORDERED: ZANAFLEX4 MG PO (11:18)
[2017-11-01] MEDS ORDERED: LORCET 5-325 M1 EACH PO (11:18)
[2017-11-01] MEDS ORDERED: LYRICA200 MG PO (11:18)
[2017-11-01 12:24] LABS: TROP-I INTERPRETATION NEGATIVE; TROPONIN-I < 0.01 ng/mL (0.0-0.30)
[2017-11-01 12:30] VITALS: BP 157/69
== END 2017-11-01 16:00 | disposition home or self-care (01) ==
LOC: EME 20:55 → EDOF 11-01 02:37 → 5WEST 11-01 02:37 → EDOF 11-01 02:37 → ENRESERV 11-01 02:44 → 5WEST 11-01 04:02
PROVIDERS: Hospitalist; Physician Assistant; Physician Assistant Medical
DX: G89.29 Other chronic pain (principal); I82.409 Acute embolism and thrombosis of unspecified deep veins of unspecified lower extremity; I26.99 Other pulmonary embolism without acute cor pulmonale; Z79.01 Long term (current) use of anticoagulants; R07.9 Chest pain, unspecified; R19.7 Diarrhea, unspecified; R05 Cough; R06.02 Shortness of breath; Z87.11 Personal history of peptic ulcer disease; E11.42 Type 2 diabetes mellitus with diabetic polyneuropathy; I25.2 Old myocardial infarction; M79.7 Fibromyalgia; K22.2 Esophageal obstruction; Z88.0 Allergy status to penicillin; Z88.5 Allergy status to narcotic agent; Z88.1 Allergy status to other antibiotic agents
CPT/HCPCS: 71275; 80048; 82948; 84484; 85025; 85610; 85730; 87493; 87502; 93005; 99202; 99281; 99284; G0378; J1200; J1885; J7030

== ENCOUNTER 2017-12-16 15:55 | Emergency (ER) | payer OTHER ==
[~2017-12-16] VITALS: Ht 170.2 cm; Wt 84.5 kg
[~2017-12-16 15:55] MED LIST changes: +LORCET 5-325 M1 EACH PO; +LYRICA200 MG PO
[2017-12-16 17:27] LABS: HEMATOCRIT 36.2 % (36.0-46.0); HEMOGLOBIN 12.3 G/DL (11.9-15.5); MCH 30.3 PG (29.0-34.0); MCV 89.2 FL (83-99); PLATELET COUNT 154 K/uL (156-360); RBC DIS.WIDTH-CV 12.9 % (11.8-14.6); RBC DIS.WIDTH-SD 42.2 % (39-53); RED BLOOD COUNT 4.06 M/uL (3.80-5.20); WHITE BLOOD COUNT 4.5 K/uL (4.1-10.2)
[2017-12-16 17:36] LABS: INTER. NORMALIZED RATIO 1.6
[2017-12-16 17:38] LABS: PTT 38.6 SEC (25-37)
[2017-12-16 17:39] LABS: ALBUMIN 4.1 g/dL (3.2-4.8); CHLORIDE 107 mEq/L (99-109); POTASSIUM 4.5 mEq/L (3.7-5.4); SODIUM 140 mEq/L (136-147)
[2017-12-16 17:41] LABS: GLUCOSE 131 mg/dL (70-99); TOTAL PROTEIN 6.9 g/dL (6.4-8.3)
[2017-12-16 17:43] LABS: TOTAL BILIRUBIN 0.2 mg/dL (0.0-1.0)
[2017-12-16 17:45] LABS: ALKALINE PHOSPHATASE 74 IU/L (3-129); GFR ESTIMATE (CALCULATED) 59 mL/min/
[2017-12-16 17:46] LABS: UREA NITROGEN (BUN) 12 mg/dL (9-23)
[2017-12-16 17:47] LABS: AST (GOT) 12 IU/L (2-34)
[2017-12-16 17:48] LABS: ALT (GPT) 11 IU/L (3-49)
[2017-12-16 19:37] LABS: APPEARANCE CLEAR ((CLEAR)); BILIRUBIN NEGATIVE; BLOOD NEGATIVE; COLOR YELLOW ((YELLOW)); GLUCOSE (STRIP) NEGATIVE; KETONES NEGATIVE; LEUKOCYTES NEGATIVE; NITRITE NEGATIVE; PROTEIN (STRIP) NEGATIVE; SPECIFIC GRAVITY 1.013 (1.000-1.030); UCUL ADDED? NO; UROBILINOGEN 0.2 MG/DL (0.2-1.0)
[2017-12-16] MEDS ORDERED: ZOFRAN4 MG PO (20:00)
[2017-12-16] MEDS ORDERED: NORCO 5/3251 TABLET PO (20:02)
[2017-12-16 20:42] VITALS: BP 151/67
== END 2017-12-16 20:44 | disposition home or self-care (01) ==
LOC: EME 15:55
PROVIDERS: Nurse Practitioner Family; Physician Assistant
DX: R10.32 Left lower quadrant pain (principal); R19.7 Diarrhea, unspecified; E11.9 Type 2 diabetes mellitus without complications; I10 Essential (primary) hypertension; K21.9 Gastro-esophageal reflux disease without esophagitis; E78.5 Hyperlipidemia, unspecified; J45.909 Unspecified asthma, uncomplicated; G43.909 Migraine, unspecified, not intractable, without status migrainosus; M79.7 Fibromyalgia; G89.29 Other chronic pain; I25.2 Old myocardial infarction; M19.90 Unspecified osteoarthritis, unspecified site; M54.9 Dorsalgia, unspecified; F41.9 Anxiety disorder, unspecified; F32.9 Major depressive disorder, single episode, unspecified; Z79.01 Long term (current) use of anticoagulants; Z79.4 Long term (current) use of insulin; Z79.891 Long term (current) use of opiate analgesic; Z86.718 Personal history of other venous thrombosis and embolism; Z85.9 Personal history of malignant neoplasm, unspecified; Z90.710 Acquired absence of both cervix and uterus; Z90.49 Acquired absence of other specified parts of digestive tract; Z88.5 Allergy status to narcotic agent; Z88.0 Allergy status to penicillin; Z88.1 Allergy status to other antibiotic agents
CPT/HCPCS: 74177; 80053; 81003; 85027; 85610; 85730; 99281; 99284; J2270; J2405; J7030

== ENCOUNTER 2017-12-19 16:02 | Observation (INO) | payer OTHER ==
[~2017-12-19] VITALS: Ht 170.2 cm; Wt 83.0 kg
[~2017-12-19 16:02] MED LIST changes: +NORCO 5/3251 TABLET PO
[2017-12-19 16:38] LABS: HEMATOCRIT 35.3 % (36.0-46.0); HEMOGLOBIN 12.4 G/DL (11.9-15.5); MCH 30.7 PG (29.0-34.0); MCHC 35.1 G/DL (30.0-36.0); MCV 87.4 FL (83-99); PLATELET COUNT 156 K/uL (156-360); RBC DIS.WIDTH-CV 12.5 % (11.8-14.6); RBC DIS.WIDTH-SD 40.1 % (39-53); RED BLOOD COUNT 4.04 M/uL (3.80-5.20); WHITE BLOOD COUNT 4.1 K/uL (4.1-10.2)
[2017-12-19 16:49] LABS: CHLORIDE 106 mEq/L (99-109); POTASSIUM 4.2 mEq/L (3.7-5.4); SODIUM 139 mEq/L (136-147)
[2017-12-19 16:50] LABS: GLUCOSE 120 mg/dL (70-99)
[2017-12-19 16:54] LABS: CREATININE 0.9 mg/dL (0.6-1.3); GFR ESTIMATE (CALCULATED) > 59 mL/min/
[2017-12-19 16:55] LABS: UREA NITROGEN (BUN) 11 mg/dL (9-23)
[2017-12-19 17:03] LABS: TROP-I INTERPRETATION NEGATIVE; TROPONIN-I < 0.01 ng/mL (0.0-0.30)
[2017-12-19] MEDS ORDERED: PRIMIDONE50 MG PO (18:16)
[2017-12-19] MEDS ORDERED: MELOXICAM7.5 MG PO (18:17)
[2017-12-19] MEDS ORDERED: XARELTO20 MG PO (18:17)
[2017-12-19] MEDS ORDERED: MORPHINE SULFAT15 M1 PO (18:18)
[2017-12-19] MEDS ORDERED: RANITIDINE HCL300 MG PO (18:21)
[2017-12-19] MEDS ORDERED: RIZATRIPTAN10 MG PO (18:23)
[2017-12-19] MEDS ORDERED: OXYCODONE-APAP1 EAC6 PO (18:24)
[2017-12-19] MEDS ORDERED: VOLTAREN 1% GE100 GM TP (20:09)
[2017-12-19] MEDS ORDERED: LINZESS290 MCG PO (20:10)
[2017-12-19] MEDS ORDERED: CLARITIN-D 21 TABLET PO (20:10)
[2017-12-19] MEDS ORDERED: REFRESH TEARS15 ML BOTH EYES (20:10)
[2017-12-19 22:39] VITALS: BP 174/85
[2017-12-19 23:22] LABS: TROP-I INTERPRETATION NEGATIVE; TROPONIN-I < 0.01 ng/mL (0.0-0.30)
[2017-12-20] VITALS: BP 162/74
[2017-12-20 04:04] VITALS: BP 111/59
[2017-12-20 06:11] LABS: TROP-I INTERPRETATION NEGATIVE; TROPONIN-I < 0.01 ng/mL (0.0-0.30)
[2017-12-20 08:14] VITALS: BP 116/58
[2017-12-20 11:35] VITALS: BP 104/58
[2017-12-20 15:58] VITALS: BP 121/58
== END 2017-12-20 18:30 | disposition home or self-care (01) ==
LOC: EME 16:02 → EDOF 19:53 → 5WEST 19:53 → EDOF 19:53 → ENRESERV 19:55 → 5WEST 22:17
PROVIDERS: Hospitalist; Physician Assistant
DX: R07.89 Other chest pain (principal); I25.10 Atherosclerotic heart disease of native coronary artery without angina pectoris; Z86.711 Personal history of pulmonary embolism; Z86.718 Personal history of other venous thrombosis and embolism; Z79.01 Long term (current) use of anticoagulants; E11.9 Type 2 diabetes mellitus without complications; I10 Essential (primary) hypertension; E78.5 Hyperlipidemia, unspecified; G89.29 Other chronic pain; M54.9 Dorsalgia, unspecified; F32.9 Major depressive disorder, single episode, unspecified; F41.9 Anxiety disorder, unspecified; Z79.4 Long term (current) use of insulin; Z72.0 Tobacco use; E66.9 Obesity, unspecified; Z68.28 Body mass index [BMI] 28.0-28.9, adult; M79.7 Fibromyalgia; K21.9 Gastro-esophageal reflux disease without esophagitis; M19.90 Unspecified osteoarthritis, unspecified site; E03.9 Hypothyroidism, unspecified; Z90.49 Acquired absence of other specified parts of digestive tract; Z90.710 Acquired absence of both cervix and uterus; Z88.0 Allergy status to penicillin; Z88.5 Allergy status to narcotic agent; Z88.1 Allergy status to other antibiotic agents; Z88.8 Allergy status to other drugs, medicaments and biological substances
CPT/HCPCS: 71046; 80048; 82948; 84484; 85027; 93005; 99202; 99281; 99285; G0378; J2060; J2270; J2405

== ENCOUNTER 2017-12-22 18:58 | Emergency (ER) | payer OTHER ==
[~2017-12-22] VITALS: Ht 170.2 cm; Wt 83.9 kg
[~2017-12-22 18:58] MED LIST changes: +CLARITIN-D 21 TABLET PO; +PRIMIDONE50 MG PO; +RANITIDINE HCL300 MG PO; +RIZATRIPTAN10 MG PO; +XARELTO20 MG PO
[2017-12-22 20:03] LABS: HEMATOCRIT 35.5 % (36.0-46.0); HEMOGLOBIN 12.1 G/DL (11.9-15.5); MCH 30.4 PG (29.0-34.0); MCHC 34.1 G/DL (30.0-36.0); MCV 89.2 FL (83-99); PLATELET COUNT 132 K/uL (156-360); RBC DIS.WIDTH-CV 12.5 % (11.8-14.6); RBC DIS.WIDTH-SD 41.5 % (39-53); RED BLOOD COUNT 3.98 M/uL (3.80-5.20); WHITE BLOOD COUNT 4.2 K/uL (4.1-10.2)
[2017-12-22 20:13] LABS: CHLORIDE 109 mEq/L (99-109); POTASSIUM 3.8 mEq/L (3.7-5.4); SODIUM 141 mEq/L (136-147)
[2017-12-22 20:14] LABS: GLUCOSE 147 mg/dL (70-99)
[2017-12-22 20:18] LABS: GFR ESTIMATE (CALCULATED) 59 mL/min/
[2017-12-22 20:19] LABS: UREA NITROGEN (BUN) 19 mg/dL (9-23)
[2017-12-22 20:26] LABS: TROP-I INTERPRETATION NEGATIVE; TROPONIN-I < 0.01 ng/mL (0.0-0.30)
[2017-12-22 23:52] VITALS: BP 155/66
== END 2017-12-22 23:56 | disposition home or self-care (01) ==
LOC: EME 18:58
DX: R07.89 Other chest pain (principal); E11.9 Type 2 diabetes mellitus without complications; Z79.4 Long term (current) use of insulin; E78.5 Hyperlipidemia, unspecified; I10 Essential (primary) hypertension; I25.2 Old myocardial infarction; I48.91 Unspecified atrial fibrillation; F32.9 Major depressive disorder, single episode, unspecified; F41.9 Anxiety disorder, unspecified; G89.29 Other chronic pain; J45.909 Unspecified asthma, uncomplicated; K21.9 Gastro-esophageal reflux disease without esophagitis; M79.7 Fibromyalgia; Z88.5 Allergy status to narcotic agent; Z88.0 Allergy status to penicillin
CPT/HCPCS: 71046; 80048; 84484; 85027; 93005; 99281; 99284

== ENCOUNTER 2018-01-09 10:21 | Day surgery (SDC) | payer OTHER ==
[~2018-01-09] VITALS: Ht 167.6 cm; Wt 83.9 kg
[~2018-01-09 10:21] MED LIST changes: +GLUCOPHAGE500 MG PO; -LORCET 5-325 M1 EACH PO; +LORCET PLUS 7.1 EACH PO; +MOBIC7.5 MG PO; +MONODOX100 MG PO; +MYSOLINE50 MG PO; +PROAIR HFA8.5 GM IH; +ULTRAM50 MG PO; +VITAMIN D-32000 UNI2 PO; +XANAX0.25 MG PO; +ZOFRAN ODT8 MG PO
[2018-01-09] MEDS ORDERED: CLEOCIN300 MG PO (10:44)
== END 2018-01-09 11:46 | disposition home or self-care (01) ==
LOC: PAIN 10:21
PROVIDERS: Anesthesiology Pain Medicine
DX: M47.816 Spondylosis without myelopathy or radiculopathy, lumbar region (principal); M48.061 Spinal stenosis, lumbar region without neurogenic claudication; M51.26 Other intervertebral disc displacement, lumbar region; M54.16 Radiculopathy, lumbar region; M79.1 Myalgia; M46.96 Unspecified inflammatory spondylopathy, lumbar region; Z87.891 Personal history of nicotine dependence; Z79.891 Long term (current) use of opiate analgesic; E11.9 Type 2 diabetes mellitus without complications; K21.9 Gastro-esophageal reflux disease without esophagitis; I10 Essential (primary) hypertension; E78.00 Pure hypercholesterolemia, unspecified; E03.9 Hypothyroidism, unspecified; E55.9 Vitamin D deficiency, unspecified; I25.2 Old myocardial infarction; Z87.448 Personal history of other diseases of urinary system; Z79.4 Long term (current) use of insulin
CPT/HCPCS: 82948; J2250; J3010

== ENCOUNTER 2018-01-16 10:27 | Day surgery (SDC) | payer OTHER ==
[~2018-01-16] VITALS: Ht 167.6 cm; Wt 83.9 kg
[~2018-01-16 10:27] MED LIST changes: -PROAIR HFA8.5 GM IH; +PROVENTIL,2.5 MG/3 M IH
== END 2018-01-16 12:00 | disposition home or self-care (01) ==
LOC: PAIN 10:27 → SDC 11:00 → PAIN 11:00
PROVIDERS: Anesthesiology Pain Medicine
DX: M47.816 Spondylosis without myelopathy or radiculopathy, lumbar region (principal); M51.16 Intervertebral disc disorders with radiculopathy, lumbar region; M48.061 Spinal stenosis, lumbar region without neurogenic claudication; I10 Essential (primary) hypertension; E11.40 Type 2 diabetes mellitus with diabetic neuropathy, unspecified; E03.9 Hypothyroidism, unspecified; I25.2 Old myocardial infarction; K21.9 Gastro-esophageal reflux disease without esophagitis; I44.0 Atrioventricular block, first degree; E78.00 Pure hypercholesterolemia, unspecified; Z87.891 Personal history of nicotine dependence; Z79.4 Long term (current) use of insulin; Z88.0 Allergy status to penicillin; Z79.891 Long term (current) use of opiate analgesic
CPT/HCPCS: 82948; J1030; J2250; S0020

== ENCOUNTER 2018-01-17 15:26 | Emergency (ER) | payer OTHER ==
[~2018-01-17] VITALS: Ht 170.2 cm; Wt 83.6 kg
[2018-01-17 15:50] LABS: HEMATOCRIT 34.5 % (36.0-46.0); HEMOGLOBIN 11.8 G/DL (11.9-15.5); MCH 30.3 PG (29.0-34.0); MCHC 34.2 G/DL (30.0-36.0); MCV 88.5 FL (83-99); RBC DIS.WIDTH-CV 13.1 % (11.8-14.6); RBC DIS.WIDTH-SD 42.1 % (39-53); WHITE BLOOD COUNT 6.7 K/uL (4.1-10.2)
[2018-01-17 15:54] LABS: PLATELET COUNT 181 K/uL (156-360)
[2018-01-17 16:00] LABS: ALBUMIN 4.2 g/dL (3.2-4.8); CHLORIDE 107 mEq/L (99-109); POTASSIUM 4.2 mEq/L (3.7-5.4); SODIUM 141 mEq/L (136-147)
[2018-01-17 16:03] LABS: GLUCOSE 259 mg/dL (70-99); TOTAL PROTEIN 7.2 g/dL (6.4-8.3)
[2018-01-17 16:05] LABS: TOTAL BILIRUBIN 0.4 mg/dL (0.0-1.0)
[2018-01-17 16:06] LABS: ALKALINE PHOSPHATASE 83 IU/L (3-129); GFR ESTIMATE (CALCULATED) 59 mL/min/
[2018-01-17 16:07] LABS: UREA NITROGEN (BUN) 21 mg/dL (9-23)
[2018-01-17 16:08] LABS: AST (GOT) 11 IU/L (2-34)
[2018-01-17 16:09] LABS: ALT (GPT) 11 IU/L (3-49)
[2018-01-17 17:17] LABS: APPEARANCE CLEAR ((CLEAR)); BILIRUBIN NEGATIVE; BLOOD NEGATIVE; COLOR YELLOW ((YELLOW)); GLUCOSE (STRIP) >=500; KETONES NEGATIVE; LEUKOCYTES NEGATIVE; NITRITE NEGATIVE; PROTEIN (STRIP) NEGATIVE; SPECIFIC GRAVITY 1.021 (1.000-1.030); UCUL ADDED? NO; UROBILINOGEN 0.2 MG/DL (0.2-1.0)
[2018-01-17 17:25] VITALS: BP 172/73
== END 2018-01-17 17:26 | disposition home or self-care (01) ==
LOC: EME 15:26
DX: J02.9 Acute pharyngitis, unspecified (principal); E11.9 Type 2 diabetes mellitus without complications; Z79.4 Long term (current) use of insulin; E78.5 Hyperlipidemia, unspecified; J45.909 Unspecified asthma, uncomplicated; I25.2 Old myocardial infarction; M79.7 Fibromyalgia; G89.29 Other chronic pain; Z88.5 Allergy status to narcotic agent; Z88.0 Allergy status to penicillin; Z87.891 Personal history of nicotine dependence
CPT/HCPCS: 80053; 81003; 85027; 99281; 99284

== ENCOUNTER 2018-02-08 07:59 | Emergency (ER) | payer OTHER ==
[~2018-02-08] VITALS: Ht 170.2 cm; Wt 85.6 kg
[2018-02-08 08:29] LABS: HEMATOCRIT 33.2 % (36.0-46.0); HEMOGLOBIN 11.6 G/DL (11.9-15.5); MCH 30.9 PG (29.0-34.0); MCHC 34.9 G/DL (30.0-36.0); MCV 88.3 FL (83-99); PLATELET COUNT 147 K/uL (156-360); RBC DIS.WIDTH-CV 13.2 % (11.8-14.6); RBC DIS.WIDTH-SD 42.6 % (39-53); RED BLOOD COUNT 3.76 M/uL (3.80-5.20); WHITE BLOOD COUNT 3.7 K/uL (4.1-10.2)
[2018-02-08 08:40] LABS: CHLORIDE 109 mEq/L (99-109); SODIUM 141 mEq/L (136-147)
[2018-02-08 08:42] LABS: GLUCOSE 230 mg/dL (70-99)
[2018-02-08 08:45] LABS: CREATININE 0.9 mg/dL (0.6-1.3); GFR ESTIMATE (CALCULATED) > 59 mL/min/
[2018-02-08 08:46] LABS: UREA NITROGEN (BUN) 18 mg/dL (9-23)
[2018-02-08 08:49] LABS: TROP-I INTERPRETATION NEGATIVE; TROPONIN-I < 0.01 ng/mL (0.0-0.30)
[2018-02-08] MEDS ORDERED: MOTION RELIEF25 MG PO (09:35)
[2018-02-08 10:10] VITALS: BP 119/76
== END 2018-02-08 10:14 | disposition home or self-care (01) ==
LOC: EME 07:59
PROVIDERS: Nurse Practitioner Family
DX: R55 Syncope and collapse (principal); E11.65 Type 2 diabetes mellitus with hyperglycemia; G89.29 Other chronic pain; R42 Dizziness and giddiness; R10.9 Unspecified abdominal pain; M79.606 Pain in leg, unspecified; I44.0 Atrioventricular block, first degree; J45.909 Unspecified asthma, uncomplicated; E78.5 Hyperlipidemia, unspecified; I25.2 Old myocardial infarction; Z90.49 Acquired absence of other specified parts of digestive tract; Z79.4 Long term (current) use of insulin; Z79.01 Long term (current) use of anticoagulants; Z88.0 Allergy status to penicillin; Z87.891 Personal history of nicotine dependence
CPT/HCPCS: 71046; 80048; 84484; 85027; 93005; 99281; 99285

== ENCOUNTER 2018-02-15 08:06 | Observation (INO) | payer OTHER ==
[~2018-02-15] VITALS: Ht 170.2 cm; Wt 87.5 kg
[~2018-02-15 08:06] MED LIST changes: +MOTION RELIEF25 MG PO
[2018-02-15 09:09] LABS: HEMATOCRIT 34.5 % (36.0-46.0); HEMOGLOBIN 11.9 G/DL (11.9-15.5); MCH 31.1 PG (29.0-34.0); MCHC 34.5 G/DL (30.0-36.0); MCV 90.1 FL (83-99); PLATELET COUNT 163 K/uL (156-360); RBC DIS.WIDTH-CV 13.3 % (11.8-14.6); RBC DIS.WIDTH-SD 43.9 % (39-53); RED BLOOD COUNT 3.83 M/uL (3.80-5.20); WHITE BLOOD COUNT 3.7 K/uL (4.1-10.2)
[2018-02-15 09:17] LABS: CHLORIDE 107 mEq/L (99-109); SODIUM 141 mEq/L (136-147)
[2018-02-15 09:19] LABS: GLUCOSE 125 mg/dL (70-99)
[2018-02-15 09:23] LABS: GFR ESTIMATE (CALCULATED) 59 mL/min/
[2018-02-15 09:24] LABS: UREA NITROGEN (BUN) 14 mg/dL (9-23)
[2018-02-15 09:36] LABS: APPEARANCE CLEAR ((CLEAR)); BILIRUBIN NEGATIVE; BLOOD NEGATIVE; COLOR STRAW ((YELLOW)); GLUCOSE (STRIP) NEGATIVE; KETONES NEGATIVE; LEUKOCYTES TRACE; NITRITE NEGATIVE; PROTEIN (STRIP) NEGATIVE; SPECIFIC GRAVITY 1.005 (1.000-1.030); UROBILINOGEN 0.2 MG/DL (0.2-1.0)
[2018-02-15 09:43] LABS: BACTERIA NONE SEEN /HPF; EPITHELIAL CELLS RARE /HPF; MUCUS NONE SEEN /LPF; RED BLOOD CELLS 0-5 /HPF (0-5); UCUL ADDED? NO; WHITE BLOOD CELLS 0-5 /HPF (0-5)
[2018-02-15] MEDS ORDERED: TOPAMAX50 MG PO ×2 (10:45→11:09)
[2018-02-15] MEDS ORDERED: ATORVASTATIN CA40 MG PO (10:45)
[2018-02-15] MEDS ORDERED: NITROGLYCERIN0.4 MG SL (10:45)
[2018-02-15] MEDS ORDERED: OMEPRAZOLE40 M1 PO (10:46)
[2018-02-15] MEDS ORDERED: GEMFIBROZIL600 MG PO (10:46)
[2018-02-15] MEDS ORDERED: FIORICET 50-301 EAC1 PO (10:47)
[2018-02-15] MEDS ORDERED: ERGOCALCIF50000 UNIT PO (10:48)
[2018-02-15] MEDS ORDERED: BUPROPION XL300 MG PO (10:48)
[2018-02-15] MEDS ORDERED: LANTUS 3 M100 UNITS1 SC (10:49)
[2018-02-15] MEDS ORDERED: LOPRESSOR25 MG PO (10:50)
[2018-02-15] MEDS ORDERED: VENTOLIN HFA18 GM IH (10:51)
[2018-02-15] MEDS ORDERED: ALPRAZOLAM0.25 M2 PO ×2 (10:52→10:53)
[2018-02-15] MEDS ORDERED: ABILIFY10 MG PO (10:53)
[2018-02-15] MEDS ORDERED: LYRICA200 MG PO (10:54)
[2018-02-15] MEDS ORDERED: RESTORIL15 MG PO (10:54)
[2018-02-15] MEDS ORDERED: VOLTAREN 1% GE100 GM TP ×2 (10:55→10:56)
[2018-02-15] MEDS ORDERED: LORCET PLUS 7.1 EACH PO (10:55)
[2018-02-15] MEDS ORDERED: LINZESS290 MCG PO (10:56)
[2018-02-15 10:58] LABS: TROP-I INTERPRETATION NEGATIVE; TROPONIN-I < 0.01 ng/mL (0.0-0.30)
[2018-02-15] MEDS ORDERED: MELOXICAM7.5 MG PO (10:58)
[2018-02-15] MEDS ORDERED: MORPHABOND ER15 MG PO (10:58)
[2018-02-15] MEDS ORDERED: REFRESH TEARS15 ML BOTH EYES (10:58)
[2018-02-15] MEDS ORDERED: MYSOLINE50 MG PO (10:59)
[2018-02-15] MEDS ORDERED: ZOFRAN ODT8 MG PO (10:59)
[2018-02-15] MEDS ORDERED: XARELTO20 MG PO (11:00)
[2018-02-15] MEDS ORDERED: PROVENTIL,2.5 MG/3 M IH (11:00)
[2018-02-15] MEDS ORDERED: MECLIZINE HCL25 MG PO (11:01)
[2018-02-15 11:12] VITALS: BP 125/63
[2018-02-15] MEDS ORDERED: CLEOCIN300 MG PO (11:26)
[2018-02-15] MEDS ORDERED: ZANTAC300 MG PO (11:27)
[2018-02-15] MEDS ORDERED: CLARITIN-D 21 TABLET PO (11:27)
[2018-02-15 14:01] LABS: SERUM ETHYL ALCOHOL < 10 mg/dL
[2018-02-15 16:05] VITALS: BP 165/79
[2018-02-15 18:13] LABS: TROP-I INTERPRETATION NEGATIVE; TROPONIN-I < 0.01 ng/mL (0.0-0.30)
[2018-02-15 19:59] VITALS: BP 124/58
[2018-02-15 20:02] VITALS: BP 119/57; BP 128/62
[2018-02-15 23:48] VITALS: BP 98/60
[2018-02-16 01:29] LABS: TROP-I INTERPRETATION NEGATIVE; TROPONIN-I < 0.01 ng/mL (0.0-0.30)
[2018-02-16 04:22] VITALS: BP 95/54
[2018-02-16 05:37] LABS: BASOPHIL (%) 0.8 % (0-1); EOSINOPHIL (%) 3.4 % (0-5); EOSINOPHIL COUNT 0.1 K/uL (0-0.3); HEMATOCRIT 34.9 % (36.0-46.0); HEMOGLOBIN 11.3 G/DL (11.9-15.5); IMMATURE GRANULOCYTE (%) 0.3 % (0.0-0.7); LYMPHOCYTE (%) 56.5 % (15-42); MCH 29.7 PG (29.0-34.0); MCHC 32.4 G/DL (30.0-36.0); MCV 91.6 FL (83-99); MONOCYTE (%) 7.9 % (3-12); MONOCYTE COUNT 0.3 K/uL (0-0.8); NEUTROPHIL (%) 31.1 % (45-76); NEUTROPHIL COUNT 1.1 K/uL (1.8-6.4); PLATELET COUNT 174 K/uL (156-360); RBC DIS.WIDTH-CV 13.3 % (11.8-14.6); RED BLOOD COUNT 3.81 M/uL (3.80-5.20); WHITE BLOOD COUNT 3.6 K/uL (4.1-10.2)
[2018-02-16 05:42] LABS: INTER. NORMALIZED RATIO 1.2
[2018-02-16 06:10] LABS: ALBUMIN 3.6 G/DL (3.2-4.8); ALKALINE PHOSPHATASE 70 IU/L (3-129); ALT (GPT) 12 IU/L (3-49); AST (GOT) 12 IU/L (2-34); CHLORIDE 107 MEQ/L (99-109); CREATININE 1.1 MG/DL (0.6-1.3); DIRECT BILIRUBIN 0.1 mg/dL (0.0-0.3); GFR ESTIMATE (CALCULATED) 52 mL/min/; GLUCOSE 123 mg/dL (70-99); POTASSIUM 4.3 MEQ/L (3.7-5.4); SODIUM 140 MEQ/L (136-147); TOTAL BILIRUBIN 0.4 MG/DL (0.0-1.0); UREA NITROGEN (BUN) 15 mg/dL (9-23)
[2018-02-16 06:52] LABS: APPEARANCE CLEAR ((CLEAR)); BILIRUBIN NEGATIVE; BLOOD NEGATIVE; COLOR YELLOW ((YELLOW)); GLUCOSE (STRIP) NEGATIVE; KETONES NEGATIVE; LEUKOCYTES MODERATE; NITRITE NEGATIVE; PROTEIN (STRIP) NEGATIVE; SPECIFIC GRAVITY 1.004 (1.000-1.030); UROBILINOGEN 0.2 MG/DL (0.2-1.0)
[2018-02-16 06:58] LABS: BACTERIA RARE /HPF; EPITHELIAL CELLS RARE /HPF; MUCUS NONE SEEN /LPF; RED BLOOD CELLS 0-5 /HPF (0-5); UCUL ADDED? NO; WHITE BLOOD CELLS 0-5 /HPF (0-5)
[2018-02-16 07:30] VITALS: BP 130/59
[2018-02-16 15:09] VITALS: BP 112/64
[2018-02-16 23:38] VITALS: BP 125/64
[2018-02-17 04:00] VITALS: BP 120/66
[2018-02-17 05:33] LABS: HEMATOCRIT 31.3 % (36.0-46.0); HEMOGLOBIN 10.2 G/DL (11.9-15.5); MCH 30.3 PG (29.0-34.0); MCHC 32.6 G/DL (30.0-36.0); MCV 92.9 FL (83-99); PLATELET COUNT 146 K/uL (156-360); RBC DIS.WIDTH-CV 13.6 % (11.8-14.6); RED BLOOD COUNT 3.37 M/uL (3.80-5.20); WHITE BLOOD COUNT 3.2 K/uL (4.1-10.2)
[2018-02-17 05:57] LABS: CHLORIDE 107 MEQ/L (99-109); CREATININE 1.2 MG/DL (0.6-1.3); GFR ESTIMATE (CALCULATED) 47 mL/min/; GLUCOSE 126 mg/dL (70-99); POTASSIUM 4.2 MEQ/L (3.7-5.4); SODIUM 139 MEQ/L (136-147); UREA NITROGEN (BUN) 17 mg/dL (9-23)
[2018-02-17 08:15] VITALS: BP 119/66
[2018-02-17 10:47] VITALS: BP 124/60
== END 2018-02-17 15:08 | disposition home or self-care (01) ==
LOC: EME 08:06 → EDOF 11:01 → 4SOUTH 11:01 → EDOF 11:01 → ENRESERV 11:02 → 4SOUTH 16:01 → ENPENDDIS 02-17 14:53 → 4SOUTH 02-17 15:08
PROVIDERS: Internal Medicine; Nurse Practitioner Acute Care; Physician Assistant Medical
DX: R55 Syncope and collapse (principal); R10.32 Left lower quadrant pain; R11.0 Nausea; I95.9 Hypotension, unspecified; D72.819 Decreased white blood cell count, unspecified; R26.2 Difficulty in walking, not elsewhere classified; I25.118 Atherosclerotic heart disease of native coronary artery with other forms of angina pectoris; E78.5 Hyperlipidemia, unspecified; Z86.711 Personal history of pulmonary embolism; Z86.718 Personal history of other venous thrombosis and embolism; J32.9 Chronic sinusitis, unspecified; G89.29 Other chronic pain; M54.5 Low back pain; F41.9 Anxiety disorder, unspecified; F32.9 Major depressive disorder, single episode, unspecified; H81.09 Meniere's disease, unspecified ear; F11.20 Opioid dependence, uncomplicated; Z87.891 Personal history of nicotine dependence; Z90.49 Acquired absence of other specified parts of digestive tract; Z90.710 Acquired absence of both cervix and uterus; M79.7 Fibromyalgia; K21.9 Gastro-esophageal reflux disease without esophagitis; M19.90 Unspecified osteoarthritis, unspecified site; E03.9 Hypothyroidism, unspecified; Z82.49 Family history of ischemic heart disease and other diseases of the circulatory system; E11.9 Type 2 diabetes mellitus without complications; I10 Essential (primary) hypertension; Z79.4 Long term (current) use of insulin; Z88.0 Allergy status to penicillin; Z88.1 Allergy status to other antibiotic agents; Z88.5 Allergy status to narcotic agent
CPT/HCPCS: 36600; 70551; 74177; 80048; 80076; 80306 90; 81003; 82803; 82948; 83605; 83690; 84484; 85025; 85025 91; 85027; 85610; 87040; 93005; 94760; 99202; 99281; 99285; G0378; G0480; G8978 GP CJ; G8979 GP CH; G8980 CJ; G8987 GO CI; G8988 GO CH; G8989 GO CI; J1650; J2405; J2765; J7030; J7120

== ENCOUNTER 2018-02-20 13:17 | Day surgery (SDC) | payer OTHER ==
[~2018-02-20 13:17] MED LIST changes: +ALPRAZOLAM0.25 M2 PO; +FIORICET 50-301 EAC1 PO; +MORPHABOND ER15 MG PO; +NITROGLYCERIN0.4 MG SL; +ZANTAC300 MG PO
== END 2018-02-20 15:45 | disposition home or self-care (01) ==
LOC: PAIN 13:17 → SDC 13:30 → PAIN 15:45
DX: M16.12 Unilateral primary osteoarthritis, left hip (principal); M47.816 Spondylosis without myelopathy or radiculopathy, lumbar region; M48.061 Spinal stenosis, lumbar region without neurogenic claudication; M51.26 Other intervertebral disc displacement, lumbar region; M54.16 Radiculopathy, lumbar region; M54.2 Cervicalgia; Z87.891 Personal history of nicotine dependence; E11.40 Type 2 diabetes mellitus with diabetic neuropathy, unspecified; Z79.4 Long term (current) use of insulin; I10 Essential (primary) hypertension; K21.9 Gastro-esophageal reflux disease without esophagitis; E03.9 Hypothyroidism, unspecified; E55.9 Vitamin D deficiency, unspecified; Z88.0 Allergy status to penicillin; Z88.1 Allergy status to other antibiotic agents; Z88.5 Allergy status to narcotic agent; Z88.8 Allergy status to other drugs, medicaments and biological substances
CPT/HCPCS: J1030; J2250; J2405; S0020

== ENCOUNTER 2018-02-23 18:00 | Observation (INO) | payer OTHER ==
[~2018-02-23] VITALS: Ht 170.2 cm; Wt 94.4 kg
[2018-02-23 18:54] LABS: HEMATOCRIT 34.9 % (36.0-46.0); HEMOGLOBIN 11.9 G/DL (11.9-15.5); MCH 30.7 PG (29.0-34.0); MCHC 34.1 G/DL (30.0-36.0); MCV 89.9 FL (83-99); PLATELET COUNT 166 K/uL (156-360); RBC DIS.WIDTH-CV 13.5 % (11.8-14.6); RBC DIS.WIDTH-SD 44.1 % (39-53); RED BLOOD COUNT 3.88 M/uL (3.80-5.20); WHITE BLOOD COUNT 5.9 K/uL (4.1-10.2)
[2018-02-23 19:05] LABS: CHLORIDE 106 mEq/L (99-109); POTASSIUM 3.8 mEq/L (3.7-5.4); SODIUM 140 mEq/L (136-147)
[2018-02-23 19:07] LABS: GLUCOSE 145 mg/dL (70-99); TOTAL PROTEIN 6.8 g/dL (6.4-8.3)
[2018-02-23 19:09] LABS: TOTAL BILIRUBIN 0.2 mg/dL (0.0-1.0)
[2018-02-23 19:11] LABS: ALKALINE PHOSPHATASE 68 IU/L (3-129); CREATININE 1.1 mg/dL (0.6-1.3); GFR ESTIMATE (CALCULATED) 52 mL/min/
[2018-02-23 19:12] LABS: AST (GOT) 12 IU/L (2-34); UREA NITROGEN (BUN) 21 mg/dL (9-23)
[2018-02-23 19:14] LABS: ALT (GPT) 15 IU/L (3-49)
[2018-02-23 19:17] LABS: TROP-I INTERPRETATION NEGATIVE; TROPONIN-I < 0.01 ng/mL (0.0-0.30)
[2018-02-23] MEDS ORDERED: ALPRAZOLAM0.5 MG PO (21:00)
[2018-02-23] MEDS ORDERED: ROPINIROLE HC0.25 MG PO (21:00)
[2018-02-23] MEDS ORDERED: GEMFIBROZIL600 MG PO (21:03)
[2018-02-23] MEDS ORDERED: HYDROCODON-ACE1 EAC8 PO (21:04)
[2018-02-23] MEDS ORDERED: MORPHINE SULFAT15 M1 PO (21:05)
[2018-02-23] MEDS ORDERED: LYRICA150 MG PO (21:09)
[2018-02-23] MEDS ORDERED: FLONASE16 G1 BOTH NARES (21:09)
[2018-02-23] MEDS ORDERED: PRIMIDONE50 MG PO (21:10)
[2018-02-23] MEDS ORDERED: RANITIDINE HCL300 MG PO (21:10)
[2018-02-23] MEDS ORDERED: TIZANIDINE HCL4 MG PO (21:10)
[2018-02-23] MEDS ORDERED: MIRALAX255 GM PO (21:19)
[2018-02-23] MEDS ORDERED: BENTYL20 MG PO (21:20)
[2018-02-23] MEDS ORDERED: CLARITIN,ALAVAR10 MG PO (21:21)
[2018-02-23 21:59] VITALS: BP 139/64
[2018-02-24 03:36] VITALS: BP 106/59
[2018-02-24 05:54] LABS: BASOPHIL (%) 1.1 % (0-1); BASOPHIL COUNT 0.1 K/uL (0-0.1); EOSINOPHIL (%) 3.5 % (0-5); EOSINOPHIL COUNT 0.2 K/uL (0-0.3); HEMATOCRIT 34.1 % (36.0-46.0); HEMOGLOBIN 11.2 G/DL (11.9-15.5); IMMATURE GRANULOCYTE (%) 0.2 % (0.0-0.7); LYMPHOCYTE (%) 47.1 % (15-42); LYMPHOCYTE COUNT 2.2 K/uL (1.0-2.8); MCH 29.6 PG (29.0-34.0); MCHC 32.8 G/DL (30.0-36.0); MCV 90.2 FL (83-99); MONOCYTE (%) 7.2 % (3-12); MONOCYTE COUNT 0.3 K/uL (0-0.8); NEUTROPHIL (%) 40.9 % (45-76); NEUTROPHIL COUNT 1.9 K/uL (1.8-6.4); PLATELET COUNT 170 K/uL (156-360); RBC DIS.WIDTH-CV 13.5 % (11.8-14.6); RBC DIS.WIDTH-SD 44.5 % (39-53); RED BLOOD COUNT 3.78 M/uL (3.80-5.20); WHITE BLOOD COUNT 4.6 K/uL (4.1-10.2)
[2018-02-24 06:13] LABS: ALBUMIN 3.7 G/DL (3.2-4.8); ALKALINE PHOSPHATASE 60 IU/L (3-129); ALT (GPT) 11 IU/L (3-49); AST (GOT) 9 IU/L (2-34); CHLORIDE 109 MEQ/L (99-109); CREATININE 0.8 MG/DL (0.6-1.3); GFR ESTIMATE (CALCULATED) > 59 mL/min/; POTASSIUM 4.2 MEQ/L (3.7-5.4); SODIUM 141 MEQ/L (136-147); TOTAL BILIRUBIN 0.3 MG/DL (0.0-1.0); TOTAL PROTEIN 6.2 G/DL (6.4-8.3); UREA NITROGEN (BUN) 18 mg/dL (9-23)
[2018-02-24 06:17] LABS: GLUCOSE 89 mg/dL (70-99)
[2018-02-24 07:54] VITALS: BP 100/50
[2018-02-24 12:40] VITALS: BP 102/52
[2018-02-24 16:12] VITALS: BP 134/64
[2018-02-24 16:21] LABS: APPEARANCE CLEAR ((CLEAR)); BILIRUBIN NEGATIVE; BLOOD NEGATIVE; COLOR STRAW ((YELLOW)); GLUCOSE (STRIP) NEGATIVE; KETONES NEGATIVE; LEUKOCYTES TRACE; NITRITE NEGATIVE; PROTEIN (STRIP) NEGATIVE; SPECIFIC GRAVITY 1.005 (1.000-1.030); UROBILINOGEN 0.2 MG/DL (0.2-1.0)
[2018-02-24 16:39] LABS: BACTERIA NONE SEEN /HPF; EPITHELIAL CELLS RARE /HPF; MUCUS NONE SEEN /LPF; RED BLOOD CELLS 0-5 /HPF (0-5); WHITE BLOOD CELLS 0-5 /HPF (0-5)
[2018-02-24 19:30] VITALS: BP 111/59
[2018-02-25 03:24] VITALS: BP 113/57
[2018-02-25 05:13] LABS: HEMOGLOBIN 11.3 G/DL (11.9-15.5); MCH 30.3 PG (29.0-34.0); MCHC 33.2 G/DL (30.0-36.0); MCV 91.2 FL (83-99); PLATELET COUNT 159 K/uL (156-360); RBC DIS.WIDTH-CV 13.8 % (11.8-14.6); RBC DIS.WIDTH-SD 46.5 % (39-53); RED BLOOD COUNT 3.73 M/uL (3.80-5.20); WHITE BLOOD COUNT 4.5 K/uL (4.1-10.2)
[2018-02-25 06:01] LABS: CHLORIDE 107 MEQ/L (99-109); GFR ESTIMATE (CALCULATED) 59 mL/min/; POTASSIUM 4.1 MEQ/L (3.7-5.4); SODIUM 140 MEQ/L (136-147); UREA NITROGEN (BUN) 14 mg/dL (9-23)
[2018-02-25 06:03] LABS: GLUCOSE 135 mg/dL (70-99)
[2018-02-25 09:00] VITALS: BP 116/58
[2018-02-25 11:02] VITALS: BP 108/64
[2018-02-25 15:18] VITALS: BP 127/59
[2018-02-25 20:00] VITALS: BP 118/96
[2018-02-26 00:18] VITALS: BP 139/63
[2018-02-26 07:32] VITALS: BP 108/51
[2018-02-26] MEDS ORDERED: DOCUSATE SODIU100 MG PO (11:13)
[2018-02-26] MEDS ORDERED: FLAGYL500 MG PO (11:13)
[2018-02-26 11:17] VITALS: BP 107/53
[2018-02-26 12:36] LABS: C DIFF TOXIN NEGATIVE (NEGATIVE)
== END 2018-02-26 14:29 | disposition home or self-care (01) ==
LOC: EME 18:00 → 4SOUTH 20:56 → EDOF 20:56 → ENRESERV 20:59 → 4SOUTH 21:42
PROVIDERS: Hospitalist; Internal Medicine; Nurse Practitioner Family; Physician Assistant
DX: R10.32 Left lower quadrant pain (principal); K52.9 Noninfective gastroenteritis and colitis, unspecified; Z86.718 Personal history of other venous thrombosis and embolism; Z86.711 Personal history of pulmonary embolism; Z79.01 Long term (current) use of anticoagulants; E11.9 Type 2 diabetes mellitus without complications; I10 Essential (primary) hypertension; G89.29 Other chronic pain; F32.9 Major depressive disorder, single episode, unspecified; F41.9 Anxiety disorder, unspecified; K21.9 Gastro-esophageal reflux disease without esophagitis; M79.7 Fibromyalgia; E78.5 Hyperlipidemia, unspecified; Z79.4 Long term (current) use of insulin; Z87.891 Personal history of nicotine dependence; Z82.49 Family history of ischemic heart disease and other diseases of the circulatory system; Z90.49 Acquired absence of other specified parts of digestive tract; Z90.710 Acquired absence of both cervix and uterus; Z88.0 Allergy status to penicillin; Z88.1 Allergy status to other antibiotic agents; Z88.5 Allergy status to narcotic agent; Z88.8 Allergy status to other drugs, medicaments and biological substances
CPT/HCPCS: 71046; 74177; 80048; 80053; 81003; 82948; 84484; 85025; 85027; 87086; 87493; 87506; 93005; 99281; 99285; G0378; J0696; J1815; J2405; J3010; J7030; S0030

== ENCOUNTER 2018-02-27 17:11 | Emergency (ER) | payer OTHER ==
[~2018-02-27] VITALS: Ht 170.2 cm; Wt 87.2 kg
[~2018-02-27 17:11] MED LIST changes: +CLARITIN,ALAVAR10 MG PO; +DOCUSATE SODIU100 MG PO; +FLAGYL500 MG PO; +MIRALAX255 GM PO
[2018-02-27 17:59] LABS: BASOPHIL (%) 0.8 % (0-1); EOSINOPHIL (%) 3.1 % (0-5); EOSINOPHIL COUNT 0.2 K/uL (0-0.3); HEMOGLOBIN 11.9 G/DL (11.9-15.5); LYMPHOCYTE (%) 41.2 % (15-42); MCH 30.7 PG (29.0-34.0); MCV 90.4 FL (83-99); MONOCYTE (%) 8.5 % (3-12); MONOCYTE COUNT 0.4 K/uL (0-0.8); NEUTROPHIL (%) 46.4 % (45-76); NEUTROPHIL COUNT 2.2 K/uL (1.8-6.4); PLATELET COUNT 167 K/uL (156-360); RBC DIS.WIDTH-CV 13.3 % (11.8-14.6); RBC DIS.WIDTH-SD 44.3 % (39-53); RED BLOOD COUNT 3.87 M/uL (3.80-5.20); WHITE BLOOD COUNT 4.8 K/uL (4.1-10.2)
[2018-02-27 18:09] LABS: CHLORIDE 107 mEq/L (99-109); POTASSIUM 4.2 mEq/L (3.7-5.4); SODIUM 140 mEq/L (136-147)
[2018-02-27 18:11] LABS: GLUCOSE 137 mg/dL (70-99)
[2018-02-27 18:12] LABS: TOTAL PROTEIN 6.9 g/dL (6.4-8.3)
[2018-02-27 18:13] LABS: TOTAL BILIRUBIN 0.2 mg/dL (0.0-1.0)
[2018-02-27 18:15] LABS: ALKALINE PHOSPHATASE 74 IU/L (3-129); CREATININE 1.1 mg/dL (0.6-1.3); GFR ESTIMATE (CALCULATED) 52 mL/min/
[2018-02-27 18:18] LABS: ALT (GPT) 18 IU/L (3-49)
[2018-02-27 18:24] LABS: AST (GOT) 18 IU/L (2-34); TROP-I INTERPRETATION NEGATIVE; TROPONIN-I 0.01 ng/mL (0.0-0.30); UREA NITROGEN (BUN) 22 mg/dL (9-23)
[2018-02-27 18:50] LABS: APPEARANCE CLEAR ((CLEAR)); BILIRUBIN NEGATIVE; BLOOD NEGATIVE; COLOR YELLOW ((YELLOW)); GLUCOSE (STRIP) NEGATIVE; KETONES NEGATIVE; LEUKOCYTES NEGATIVE; NITRITE NEGATIVE; PROTEIN (STRIP) NEGATIVE; SPECIFIC GRAVITY 1.017 (1.000-1.030); UCUL ADDED? NO; UROBILINOGEN 0.2 MG/DL (0.2-1.0)
[2018-02-27 20:35] VITALS: BP 103/54
== END 2018-02-27 20:44 | disposition home or self-care (01) ==
LOC: EME 17:11
PROVIDERS: Emergency Medicine
DX: R10.9 Unspecified abdominal pain (principal); K62.5 Hemorrhage of anus and rectum; J45.909 Unspecified asthma, uncomplicated; I10 Essential (primary) hypertension; M79.7 Fibromyalgia; E78.5 Hyperlipidemia, unspecified; E11.9 Type 2 diabetes mellitus without complications; K21.9 Gastro-esophageal reflux disease without esophagitis; I25.2 Old myocardial infarction; G89.29 Other chronic pain; G43.909 Migraine, unspecified, not intractable, without status migrainosus; F32.9 Major depressive disorder, single episode, unspecified; Z87.891 Personal history of nicotine dependence; Z86.718 Personal history of other venous thrombosis and embolism; Z79.01 Long term (current) use of anticoagulants; Z79.4 Long term (current) use of insulin; Z90.49 Acquired absence of other specified parts of digestive tract; Z88.5 Allergy status to narcotic agent; Z88.0 Allergy status to penicillin; Z88.1 Allergy status to other antibiotic agents
CPT/HCPCS: 74177; 80053; 81003; 84484; 85025; 86850; 86900; 86901; 93005; 99281; 99285; J7030

== ENCOUNTER 2018-03-14 14:49 | Observation (INO) | payer OTHER ==
[~2018-03-14] VITALS: Ht 170.2 cm; Wt 197.0 kg
[~2018-03-14 14:49] MED LIST changes: -CLARITIN,ALAVAR10 MG PO
[2018-03-14 15:46] LABS: BASOPHIL (%) 0.8 % (0-1); EOSINOPHIL (%) 2.6 % (0-5); EOSINOPHIL COUNT 0.1 K/uL (0-0.3); HEMATOCRIT 32.9 % (36.0-46.0); HEMOGLOBIN 11.5 G/DL (11.9-15.5); IMMATURE GRANULOCYTE (%) 0.3 % (0.0-0.7); LYMPHOCYTE (%) 41.5 % (15-42); LYMPHOCYTE COUNT 1.6 K/uL (1.0-2.8); MCH 31.2 PG (29.0-34.0); MCV 89.2 FL (83-99); MONOCYTE (%) 7.1 % (3-12); MONOCYTE COUNT 0.3 K/uL (0-0.8); NEUTROPHIL (%) 47.7 % (45-76); NEUTROPHIL COUNT 1.8 K/uL (1.8-6.4); PLATELET COUNT 138 K/uL (156-360); RBC DIS.WIDTH-CV 12.9 % (11.8-14.6); RBC DIS.WIDTH-SD 42.3 % (39-53); RED BLOOD COUNT 3.69 M/uL (3.80-5.20); WHITE BLOOD COUNT 3.8 K/uL (4.1-10.2)
[2018-03-14 15:56] LABS: INTER. NORMALIZED RATIO 1.4
[2018-03-14 15:59] LABS: PTT 35.7 SEC (25-37)
[2018-03-14 16:01] LABS: CHLORIDE 107 mEq/L (99-109); POTASSIUM 3.6 mEq/L (3.7-5.4); SODIUM 142 mEq/L (136-147)
[2018-03-14 16:02] LABS: MAGNESIUM 1.8 mg/dL (1.3-2.7)
[2018-03-14 16:03] LABS: GLUCOSE 265 mg/dL (70-99)
[2018-03-14 16:06] LABS: GFR ESTIMATE (CALCULATED) 59 mL/min/
[2018-03-14 16:07] LABS: UREA NITROGEN (BUN) 12 mg/dL (9-23)
[2018-03-14 16:13] LABS: TROP-I INTERPRETATION NEGATIVE; TROPONIN-I < 0.01 ng/mL (0.0-0.30)
[2018-03-14 18:49] LABS: D-DIMER ELISA < 150.00 ng/mLDDU (<230)
[2018-03-14] MEDS ORDERED: FLAGYL500 MG PO (18:52)
[2018-03-14] MEDS ORDERED: COLACE100 MG PO (18:57)
[2018-03-14] MEDS ORDERED: IMODIUM A-D2 M2 PO (18:59)
[2018-03-14] MEDS ORDERED: VOLTAREN 1% GE100 GM TP (18:59)
[2018-03-14] MEDS ORDERED: RESTORIL15 MG PO (19:00)
[2018-03-14 21:59] VITALS: BP 150/70
[2018-03-14 22:19] LABS: TROP-I INTERPRETATION NEGATIVE; TROPONIN-I < 0.01 ng/mL (0.0-0.30)
[2018-03-15 04:37] VITALS: BP 132/60
[2018-03-15 04:52] LABS: HEMATOCRIT 32.5 % (36.0-46.0); HEMOGLOBIN 11.2 G/DL (11.9-15.5); MCH 30.9 PG (29.0-34.0); MCHC 34.5 G/DL (30.0-36.0); MCV 89.8 FL (83-99); PLATELET COUNT 139 K/uL (156-360); RBC DIS.WIDTH-CV 13.1 % (11.8-14.6); RBC DIS.WIDTH-SD 43.6 % (39-53); RED BLOOD COUNT 3.62 M/uL (3.80-5.20); WHITE BLOOD COUNT 3.7 K/uL (4.1-10.2)
[2018-03-15 05:11] LABS: CHLORIDE 110 mEq/L (99-109); POTASSIUM 4.1 mEq/L (3.7-5.4); SODIUM 144 mEq/L (136-147)
[2018-03-15 05:13] LABS: GLUCOSE 150 mg/dL (70-99)
[2018-03-15 05:17] LABS: GFR ESTIMATE (CALCULATED) 59 mL/min/
[2018-03-15 05:18] LABS: UREA NITROGEN (BUN) 14 mg/dL (9-23)
[2018-03-15 05:19] LABS: TROP-I INTERPRETATION NEGATIVE; TROPONIN-I < 0.01 ng/mL (0.0-0.30)
[2018-03-15 08:35] VITALS: BP 119/60
[2018-03-15] MEDS ORDERED: LANTUS 3 M100 UNITS1 SC (13:03)
== END 2018-03-15 19:19 | disposition home or self-care (01) ==
LOC: EME 14:49 → 4SOUTH 20:33 → EDOF 20:33 → ENRESERV 20:36 → 4SOUTH 21:48
PROVIDERS: Emergency Medicine; Internal Medicine
DX: R07.2 Precordial pain (principal); I25.2 Old myocardial infarction; M79.7 Fibromyalgia; G89.29 Other chronic pain; K21.9 Gastro-esophageal reflux disease without esophagitis; I10 Essential (primary) hypertension; F32.9 Major depressive disorder, single episode, unspecified; E78.5 Hyperlipidemia, unspecified; J45.909 Unspecified asthma, uncomplicated; Z79.4 Long term (current) use of insulin; Z79.01 Long term (current) use of anticoagulants; Z79.891 Long term (current) use of opiate analgesic; Z88.5 Allergy status to narcotic agent; Z88.0 Allergy status to penicillin; Z88.1 Allergy status to other antibiotic agents; Z87.891 Personal history of nicotine dependence; Z86.711 Personal history of pulmonary embolism; Z86.718 Personal history of other venous thrombosis and embolism; F41.9 Anxiety disorder, unspecified; E87.6 Hypokalemia; E11.65 Type 2 diabetes mellitus with hyperglycemia; M25.552 Pain in left hip; M51.16 Intervertebral disc disorders with radiculopathy, lumbar region; I25.10 Atherosclerotic heart disease of native coronary artery without angina pectoris; E03.9 Hypothyroidism, unspecified
CPT/HCPCS: 71045; 73502; 80048; 82948; 83735; 83880; 84484; 85025; 85027; 85379; 85610; 85730; 93005; G0378; J1815

== ENCOUNTER 2018-03-20 17:59 | Emergency (ER) | payer OTHER ==
[~2018-03-20] VITALS: Ht 170.2 cm; Wt 86.8 kg
[~2018-03-20 17:59] MED LIST changes: +COLACE100 MG PO; +IMODIUM A-D2 M2 PO
[2018-03-20] MEDS ORDERED: PREDNISONE50 MG PO (22:52)
[2018-03-20 23:53] VITALS: BP 173/72
== END 2018-03-20 23:58 | disposition home or self-care (01) ==
LOC: EME 17:59 → RME 17:59
DX: S39.012A Strain of muscle, fascia and tendon of lower back, initial encounter (principal); M62.838 Other muscle spasm; G89.29 Other chronic pain; M47.897 Other spondylosis, lumbosacral region; W18.2XXA Fall in (into) shower or empty bathtub, initial encounter; Y93.E1 Activity, personal bathing and showering; Z79.01 Long term (current) use of anticoagulants; Z72.0 Tobacco use
CPT/HCPCS: 72100; 99281; 99284; J1885; J7512

== ENCOUNTER 2018-04-03 08:36 | Day surgery (SDC) | payer OTHER ==
[~2018-04-03] VITALS: Ht 167.6 cm; Wt 88.5 kg
[~2018-04-03 08:36] MED LIST changes: +PREDNISONE50 MG PO; +PROAIR HFA8.5 GM IH
== END 2018-04-03 08:50 | disposition home or self-care (01) ==
LOC: PAIN
DX: M47.816 Spondylosis without myelopathy or radiculopathy, lumbar region (principal); Z79.01 Long term (current) use of anticoagulants; Z53.09 Procedure and treatment not carried out because of other contraindication
CPT/HCPCS: J2250

== ENCOUNTER 2018-04-07 09:23 | Emergency (ER) | payer OTHER ==
[~2018-04-07] VITALS: Ht 170.2 cm; Wt 92.9 kg
[2018-04-07 10:06] LABS: HEMATOCRIT 33.5 % (36.0-46.0); HEMOGLOBIN 11.5 G/DL (11.9-15.5); MCH 31.1 PG (29.0-34.0); MCHC 34.3 G/DL (30.0-36.0); MCV 90.5 FL (83-99); PLATELET COUNT 131 K/uL (156-360); RBC DIS.WIDTH-CV 12.2 % (11.8-14.6); RBC DIS.WIDTH-SD 40.4 % (39-53); WHITE BLOOD COUNT 3.7 K/uL (4.1-10.2)
[2018-04-07 10:15] LABS: APPEARANCE CLEAR ((CLEAR)); BILIRUBIN NEGATIVE; BLOOD NEGATIVE; COLOR YELLOW ((YELLOW)); GLUCOSE (STRIP) NEGATIVE; KETONES NEGATIVE; LEUKOCYTES TRACE; NITRITE NEGATIVE; PROTEIN (STRIP) NEGATIVE; SPECIFIC GRAVITY 1.008 (1.000-1.030); UROBILINOGEN 0.2 MG/DL (0.2-1.0)
[2018-04-07 10:15] LABS: CHLORIDE 102 mEq/L (99-109); POTASSIUM 4.1 mEq/L (3.7-5.4); SODIUM 141 mEq/L (136-147)
[2018-04-07 10:16] LABS: GLUCOSE 131 mg/dL (70-99)
[2018-04-07 10:17] LABS: BACTERIA NONE SEEN /HPF; EPITHELIAL CELLS RARE /HPF; MUCUS NONE SEEN /LPF; RED BLOOD CELLS 0-5 /HPF (0-5); UCUL ADDED? NO; WHITE BLOOD CELLS 0-5 /HPF (0-5)
[2018-04-07 10:20] LABS: CREATININE 1.1 mg/dL (0.6-1.3); GFR ESTIMATE (CALCULATED) 52 mL/min/
[2018-04-07 10:21] LABS: UREA NITROGEN (BUN) 11 mg/dL (9-23)
[2018-04-07 13:33] VITALS: BP 142/55
== END 2018-04-07 13:34 | disposition home or self-care (01) ==
LOC: EME 09:23
PROVIDERS: Emergency Medicine
DX: T40.2X1A Poisoning by other opioids, accidental (unintentional), initial encounter (principal); R40.0 Somnolence; R42 Dizziness and giddiness; R11.0 Nausea; I25.2 Old myocardial infarction; I10 Essential (primary) hypertension; E78.5 Hyperlipidemia, unspecified; J45.909 Unspecified asthma, uncomplicated; E11.9 Type 2 diabetes mellitus without complications; Z79.4 Long term (current) use of insulin; Z72.0 Tobacco use; Z79.01 Long term (current) use of anticoagulants; Z79.891 Long term (current) use of opiate analgesic
CPT/HCPCS: 80048; 81003; 85027; 93005; 99281; 99284; J2405; J7030

== ENCOUNTER 2018-05-05 14:47 | Emergency (ER) | payer OTHER ==
[~2018-05-05] VITALS: Ht 170.2 cm; Wt 71.7 kg
[2018-05-05 15:29] LABS: BASOPHIL (%) 0.7 % (0-1); EOSINOPHIL (%) 2.2 % (0-5); EOSINOPHIL COUNT 0.1 K/uL (0-0.3); HEMATOCRIT 36.3 % (36.0-46.0); HEMOGLOBIN 12.5 G/DL (11.9-15.5); IMMATURE GRANULOCYTE (%) 0.4 % (0.0-0.7); LYMPHOCYTE (%) 38.9 % (15-42); LYMPHOCYTE COUNT 1.8 K/uL (1.0-2.8); MCH 30.6 PG (29.0-34.0); MCHC 34.4 G/DL (30.0-36.0); MCV 88.8 FL (83-99); MONOCYTE (%) 5.4 % (3-12); MONOCYTE COUNT 0.3 K/uL (0-0.8); NEUTROPHIL (%) 52.4 % (45-76); NEUTROPHIL COUNT 2.4 K/uL (1.8-6.4); PLATELET COUNT 147 K/uL (156-360); RBC DIS.WIDTH-CV 11.8 % (11.8-14.6); RBC DIS.WIDTH-SD 38.3 % (39-53); RED BLOOD COUNT 4.09 M/uL (3.80-5.20); WHITE BLOOD COUNT 4.6 K/uL (4.1-10.2)
[2018-05-05 15:38] LABS: ALBUMIN 4.1 g/dL (3.2-4.8); CHLORIDE 106 mEq/L (99-109)
[2018-05-05 15:39] LABS: POTASSIUM 4.2 mEq/L (3.7-5.4); SODIUM 140 mEq/L (136-147)
[2018-05-05 15:41] LABS: GLUCOSE 143 mg/dL (70-99)
[2018-05-05 15:43] LABS: TOTAL BILIRUBIN 0.4 mg/dL (0.0-1.0)
[2018-05-05 15:44] LABS: ALKALINE PHOSPHATASE 82 IU/L (3-129); CREATININE 0.9 mg/dL (0.6-1.3); GFR ESTIMATE (CALCULATED) > 59 mL/min/
[2018-05-05 15:46] LABS: AST (GOT) 12 IU/L (2-34); UREA NITROGEN (BUN) 11 mg/dL (9-23)
[2018-05-05 15:47] LABS: ALT (GPT) 15 IU/L (3-49)
[2018-05-05 15:49] LABS: TROP-I INTERPRETATION NEGATIVE; TROPONIN-I < 0.01 ng/mL (0.0-0.30)
[2018-05-05 19:43] LABS: TROP-I INTERPRETATION NEGATIVE; TROPONIN-I < 0.01 ng/mL (0.0-0.30)
[2018-05-05 20:47] VITALS: BP 158/74
== END 2018-05-05 20:48 | disposition home or self-care (01) ==
LOC: EME 14:47
PROVIDERS: Emergency Medicine
DX: M79.605 Pain in left leg (principal); M79.662 Pain in left lower leg; R07.9 Chest pain, unspecified; M79.89 Other specified soft tissue disorders; R06.02 Shortness of breath; I44.0 Atrioventricular block, first degree; J98.11 Atelectasis; I25.2 Old myocardial infarction; Z86.718 Personal history of other venous thrombosis and embolism; Z86.711 Personal history of pulmonary embolism; Z79.01 Long term (current) use of anticoagulants; R05 Cough; J45.909 Unspecified asthma, uncomplicated; I10 Essential (primary) hypertension; E78.5 Hyperlipidemia, unspecified; E11.9 Type 2 diabetes mellitus without complications; Z79.4 Long term (current) use of insulin; Z79.891 Long term (current) use of opiate analgesic; Z72.0 Tobacco use
CPT/HCPCS: 71275; 80053; 84484; 85025; 93005; 93971; 99281; 99285; J2405

== ENCOUNTER 2018-05-22 20:23 | Observation (INO) | payer OTHER ==
[~2018-05-22] VITALS: Ht 170.2 cm; Wt 74.3 kg
[2018-05-22 20:43] LABS: BASOPHIL (%) 0.8 % (0-1); EOSINOPHIL (%) 3.2 % (0-5); EOSINOPHIL COUNT 0.1 K/uL (0-0.3); HEMATOCRIT 31.1 % (36.0-46.0); IMMATURE GRANULOCYTE (%) 0.3 % (0.0-0.7); LYMPHOCYTE (%) 47.4 % (15-42); LYMPHOCYTE COUNT 1.8 K/uL (1.0-2.8); MCH 30.8 PG (29.0-34.0); MCHC 35.4 G/DL (30.0-36.0); MCV 87.1 FL (83-99); MONOCYTE (%) 7.9 % (3-12); MONOCYTE COUNT 0.3 K/uL (0-0.8); NEUTROPHIL (%) 40.4 % (45-76); NEUTROPHIL COUNT 1.5 K/uL (1.8-6.4); PLATELET COUNT 143 K/uL (156-360); RBC DIS.WIDTH-CV 11.8 % (11.8-14.6); RED BLOOD COUNT 3.57 M/uL (3.80-5.20); WHITE BLOOD COUNT 3.8 K/uL (4.1-10.2)
[2018-05-22 20:56] LABS: ALBUMIN 3.7 g/dL (3.2-4.8); CHLORIDE 108 mEq/L (99-109); POTASSIUM 4.2 mEq/L (3.7-5.4); SODIUM 136 mEq/L (136-147)
[2018-05-22 20:58] LABS: GLUCOSE 208 mg/dL (70-99); TOTAL PROTEIN 6.5 g/dL (6.4-8.3)
[2018-05-22 21:00] LABS: TOTAL BILIRUBIN 0.2 mg/dL (0.0-1.0)
[2018-05-22 21:02] LABS: ALKALINE PHOSPHATASE 71 IU/L (3-129); CREATININE 1.3 mg/dL (0.6-1.3); GFR ESTIMATE (CALCULATED) 43 mL/min/
[2018-05-22 21:03] LABS: UREA NITROGEN (BUN) 13 mg/dL (9-23)
[2018-05-22 21:04] LABS: AST (GOT) 12 IU/L (2-34)
[2018-05-22 21:05] LABS: ALT (GPT) 13 IU/L (3-49); TROP-I INTERPRETATION NEGATIVE; TROPONIN-I < 0.01 ng/mL (0.0-0.30)
[2018-05-23] MEDS ORDERED: ERGOCALCIF50000 UNIT PO (01:40)
[2018-05-23] MEDS ORDERED: REQUIP0.25 MG PO (01:41)
[2018-05-23] MEDS ORDERED: LOPID600 MG PO (01:48)
[2018-05-23] MEDS ORDERED: NORCO 7.5/321 TABLET PO (01:51)
[2018-05-23] MEDS ORDERED: MS CONTIN,ORAMO15 M1 PO (01:52)
[2018-05-23] MEDS ORDERED: MOBIC7.5 MG PO (01:53)
[2018-05-23] MEDS ORDERED: RANITIDINE HCL300 MG PO (01:55)
[2018-05-23] MEDS ORDERED: BUTALB-APAP-CA1 EACH PO (01:56)
[2018-05-23] MEDS ORDERED: MIRALAX17 GM PO (01:58)
[2018-05-23] MEDS ORDERED: BENTYL20 MG PO (01:58)
[2018-05-23] MEDS ORDERED: LANTUS 10100 UNITS/ SC (01:59)
[2018-05-23] MEDS ORDERED: CLARITIN,ALAVAR10 MG PO (01:59)
[2018-05-23 02:57] LABS: TROP-I INTERPRETATION NEGATIVE; TROPONIN-I < 0.01 ng/mL (0.0-0.30)
[2018-05-23 04:00] VITALS: BP 140/70
[2018-05-23 07:12] VITALS: BP 155/65
[2018-05-23 11:26] LABS: TROP-I INTERPRETATION NEGATIVE; TROPONIN-I < 0.01 ng/mL (0.0-0.30)
[2018-05-23 11:31] VITALS: BP 138/63
== END 2018-05-23 14:52 | disposition home or self-care (01) ==
LOC: EME → EDBD 20:23 → EME 20:23 → EDOF 05-23 00:10 → 4SOUTH 05-23 00:10 → EDOF 05-23 00:10 → ENRESERV 05-23 00:14 → 4SOUTH 05-23 01:02
PROVIDERS: Emergency Medicine; Hospitalist; Physician Assistant
PROC: B246ZZZ Ultrasonography of Right and Left Heart (ICD-10-PCS; principal; 2018-05-23)
DX: R07.89 Other chest pain (principal); I10 Essential (primary) hypertension; E78.5 Hyperlipidemia, unspecified; E11.9 Type 2 diabetes mellitus without complications; Z86.711 Personal history of pulmonary embolism; Z86.718 Personal history of other venous thrombosis and embolism; I25.2 Old myocardial infarction; Z79.01 Long term (current) use of anticoagulants; G89.29 Other chronic pain; M54.9 Dorsalgia, unspecified; Z79.891 Long term (current) use of opiate analgesic; Z82.49 Family history of ischemic heart disease and other diseases of the circulatory system; Z87.19 Personal history of other diseases of the digestive system; G25.81 Restless legs syndrome; F41.9 Anxiety disorder, unspecified; F32.9 Major depressive disorder, single episode, unspecified; Z90.49 Acquired absence of other specified parts of digestive tract; Z90.710 Acquired absence of both cervix and uterus; Z79.4 Long term (current) use of insulin; Z83.3 Family history of diabetes mellitus; Z88.1 Allergy status to other antibiotic agents; Z88.0 Allergy status to penicillin; Z88.5 Allergy status to narcotic agent; Z88.8 Allergy status to other drugs, medicaments and biological substances
CPT/HCPCS: 71045; 80053; 82948; 84484; 85025; 93005; 93306; 99281; 99285; G0378; J1815

== ENCOUNTER 2018-05-27 11:13 | Emergency (ER) | payer OTHER ==
[~2018-05-27] VITALS: Ht 170.2 cm; Wt 91.0 kg
[~2018-05-27 11:13] MED LIST changes: +CLARITIN,ALAVAR10 MG PO; +MIRALAX17 GM PO; +NORCO 7.5/321 TABLET PO
[2018-05-27] MEDS ORDERED: ERYTHROMYC1 APPLICAT RIGHT EYE (13:24)
[2018-05-27 13:43] VITALS: BP 130/68
== END 2018-05-27 13:47 | disposition home or self-care (01) ==
LOC: EME 11:13
DX: S05.02XA Injury of conjunctiva and corneal abrasion without foreign body, left eye, initial encounter (principal); I10 Essential (primary) hypertension; E11.9 Type 2 diabetes mellitus without complications; K21.9 Gastro-esophageal reflux disease without esophagitis; E78.5 Hyperlipidemia, unspecified; I25.2 Old myocardial infarction; M79.7 Fibromyalgia; M19.90 Unspecified osteoarthritis, unspecified site; J45.909 Unspecified asthma, uncomplicated; F32.9 Major depressive disorder, single episode, unspecified; F17.200 Nicotine dependence, unspecified, uncomplicated; Z79.4 Long term (current) use of insulin; Z79.891 Long term (current) use of opiate analgesic; Z98.890 Other specified postprocedural states; Z85.9 Personal history of malignant neoplasm, unspecified; Z90.49 Acquired absence of other specified parts of digestive tract; Z88.5 Allergy status to narcotic agent; Z88.0 Allergy status to penicillin; Z88.1 Allergy status to other antibiotic agents; Z88.8 Allergy status to other drugs, medicaments and biological substances
CPT/HCPCS: 99281; 99284

== ENCOUNTER 2018-06-12 08:30 | Day surgery (SDC) | payer OTHER ==
[~2018-06-12] VITALS: Ht 167.6 cm; Wt 88.5 kg
[~2018-06-12 08:30] MED LIST changes: +ERYTHROMYC1 APPLICAT RIGHT EYE
[2018-06-12] MEDS ORDERED: LOPRESSOR25 MG PO (08:52)
== END 2018-06-12 10:20 | disposition home or self-care (01) ==
LOC: PAIN 08:30 → SDC 10:30 → PAIN 10:30
PROVIDERS: Anesthesiology Pain Medicine
PROC: 3E0R3BZ Introduction of Anesthetic Agent into Spinal Canal, Percutaneous Approach (ICD-10-PCS; principal; 2018-06-12)
PROC: 3E0R33Z Introduction of Anti-inflammatory into Spinal Canal, Percutaneous Approach (ICD-10-PCS; principal; 2018-06-12)
DX: M51.16 Intervertebral disc disorders with radiculopathy, lumbar region (principal); M47.26 Other spondylosis with radiculopathy, lumbar region; M48.061 Spinal stenosis, lumbar region without neurogenic claudication; M46.96 Unspecified inflammatory spondylopathy, lumbar region; M79.1 Myalgia; M16.12 Unilateral primary osteoarthritis, left hip; E11.40 Type 2 diabetes mellitus with diabetic neuropathy, unspecified; K21.9 Gastro-esophageal reflux disease without esophagitis; I10 Essential (primary) hypertension; E78.00 Pure hypercholesterolemia, unspecified; E03.9 Hypothyroidism, unspecified; J45.909 Unspecified asthma, uncomplicated; I44.0 Atrioventricular block, first degree; Z79.4 Long term (current) use of insulin; Z79.891 Long term (current) use of opiate analgesic; Z88.0 Allergy status to penicillin; Z88.8 Allergy status to other drugs, medicaments and biological substances; F17.200 Nicotine dependence, unspecified, uncomplicated; I25.2 Old myocardial infarction
CPT/HCPCS: 82948; J1100; J2250; J3010